=== PATIENT | male | born 1975 | race Caucasian/White ===

== ENCOUNTER 2017-01-04 01:15 | Inpatient (IN) | payer SELFPAY ==
[~2017-01-04] VITALS: Ht 177.8 cm; Wt 84.7 kg
[~2017-01-04 01:15] MED LIST: BACT800T5 PO; NALOXONE HCL 0.4 MG/ML AMP IV PUSH PRN; ONDANSETRON HCL 4 MG/2 ML VIAL IVP PRN; SODIUM CHLOR 0.9% 1000 ML INJ 1,000 ML IV SCH; Vancomycin Consult Pharmacy 1 EA OTHER SCH
--- NOTE | 2017-01-04 01:48 | HHI.HP ---
[facility] Primary [facility] Physician No Primary Care Physician Admission Diagnosis Diagnoses: Chief Complaint: left calf open wound Travel History International Travel<30 Days: No Contact w/Intl Traveler <30 Da: No History of Present Illness Written by REJI Summers acting as scribe for Dr. Argueta] on 01/04/17 at 01:40. 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 ago. Patient was seen and discharge at [place] [facility] with Bactrim and given a clindamycin injection. He declined admission at that time, he then went home and returned to the ED for admission. He denies any chest pain , sob, fever or chills. Past Family Social History Past Medical History Patient denies any medical history Past Surgical History chest tube placement Reported Medications Reported Meds & Active Scripts Active Bactrim DS (Sulfamethoxazole-Trimethoprim) 800-160 Mg Tab 1 Tab PO BID 10 Days Allergies: Coded Allergies: penicillin G (Verified Allergy, Severe, 01/03/17) Active Ordered Medications Current Medications Medications (Trade) Dose Ordered Sig/Jacklyn Route Start Time Stop Time Status Last Admin Sodium Chloride 1,000 ml @ 83 mls/hr Q12H3M IV 01/04/17 00:15 UNV (NS Flush) 2 ml UNSCH PRN IV FLUSH 01/04/17 00:15 UNV (NS Flush) 2 ml BID IV FLUSH 01/04/17 09:00 UNV (Zofran Inj) 4 mg Q6H PRN IVP 01/04/17 00:15 UNV (Lovenox Inj) 40 mg Q24H SQ 01/04/17 00:15 UNV ([place] 5-325 Mg) 1 tab Q4H PRN PO 01/04/17 00:15 UNV ([place] 10-325 Mg) 1 tab Q4H PRN PO 01/04/17 00:15 UNV (Narcan Inj) 0.4 mg UNSCH PRN IV PUSH 10/13/17 00:15 UNV Vancomycin HCl 1000 mg/Sodium Chloride 250 ml @ 250 mls/hr Q12H IV 01/04/17 02:00 UNV Pharmacy Profile Note 0 ml @ 0 mls/hr UNSCH OTHER 01/04/17 00:15 UNV Family History Patient denies any family history, no heart disease or cancer. Social History Tobacco use: Denies Alcohol use: Denies Illicit drug use: history of opiate use Physical Exam Physical Exam GENERAL: This is a well-nourished, well-developed patient, in no apparent distress. SKIN: Multiple scabbed lesions on right lower leg, open necrotic lesion to left lower leg with brown purulent drainage with surrounding erythema HEAD: Atraumatic. Normocephalic. EYES: Pupils equal round and reactive. Extraocular motions intact. ENT: Nose without bleeding, purulent drainage or septal hematoma. Airway patent. NECK: Trachea midline. No JVD CARDIOVASCULAR: Regular rate and rhythm without murmurs, gallops, or rubs. RESPIRATORY: Clear to auscultation. Breath sounds equal bilaterally. No wheezes , rales, or rhonchi. GASTROINTESTINAL: Abdomen soft, non-tender, nondistended. No guarding. MUSCULOSKELETAL: No calf tenderness. Left lower extremity edema surrounding open wound. NEUROLOGICAL: Awake and alert Motor and sensory grossly within normal limits. Normal speech. Caprini VTE Risk Assessment Caprini VTE Risk Assessment: Mod/High Risk (score >= 2) Caprini Risk Assessment Model Point Value = 1 Point Value = 2 Point Value = 3 Point Value = 5 Age 41-60 Minor surgery BMI > 25 kg/m2 Swollen legs Varicose veins or History of unexplained or recurrent spontaneous Oral contraceptives or hormone replacement Sepsis (< 1 month) Serious lung disease, including pneumonia (< 1 month) Abnormal pulmonary function Acute myocardial infarction Congestive heart failure (< 1 month) History of inflammatory bowel disease Medical patient at bed rest Age 61-74 Arthroscopic surgery Major open surgery (> 45 min) Laparoscopic surgery (> 45 min) Malignancy Confined to bed (> 72 hours) Immobilizing plaster cast Central venous access Age >= 75 History of VTE Family history of VTE Factor V Leiden Prothrombin [id number] Lupus anticoagulant Anticardiolipin antibodies Elevated serum homocysteine Heparin-induced thrombocytopenia Other congenital or acquired thrombophilia Stroke (< 1 month) Elective arthroplasty Hip, pelvis, or leg fracture Acute spinal cord injury (< 1 month) Prophylaxis Regimen Total Risk Factor Score Risk Level Prophylaxis Regimen 0-1 Low Early ambulation 2 Moderate Order ONE of the following: *Sequential Compression Device (SCD) *Heparin 5000 units SQ BID 3-4 Higher Order ONE of the following medications: *Heparin 5000 units SQ TID *Enoxaparin/Lovenox 40 mg SQ daily (WT < 150 kg, CrCl > 30 mL/min) *Enoxaparin/Lovenox 30 mg SQ daily (WT < 150 kg, CrCl > 10-29 mL/min) *Enoxaparin/Lovenox 30 mg SQ BID (WT < 150 kg, CrCl > 30 mL/min) AND/OR *Sequential Compression Device (SCD) 5 or more Highest Order ONE of the following medications: *Heparin 5000 units SQ TID (Preferred with Epidurals) *Enoxaparin/Lovenox 40 mg SQ daily (WT < 150 kg, CrCl > 30 mL/min) *Enoxaparin/Lovenox 30 mg SQ daily (WT < 150 kg, CrCl > 10-29 mL/min) *Enoxaparin/Lovenox 30 mg SQ BID (WT < 150 kg, CrCl > 30 mL/min) AND *Sequential Compression Device (SCD) Assessment and Plan Problem List: (1) Cellulitis ICD Code: L03.90 - Cellulitis, unspecified Status: Acute (2) Sporotrichosis ICD Code: B42.9 - Sporotrichosis, unspecified Status: Acute Assessment and Plan 41 y/o male with no medical history presented to the ED with multiple scabbed lesions to right lower leg, and open wound on his left leg from a [employer] plant that began 5 days. ago. Cellulitis, left calf -Consult podiatry for possible I&D -Consult infectious disease for assistance -IV antibiotics: Vancomycin -MRI ordered r/o abscess -Wound culture pending -Pain management with [place] PO -NPO Multiple lesions on right leg, suspect sporotrichosis -Itraconazole ordered daily DVT prophylaxis: Lovenox This note was transcribed by konstantin [Kristen Avilez]. I, Dr. Trevor Etienne personally performed the history, physical exam, and medical decision making; and confirmed the accuracy of the information in the transcribed note. Authenticated by Dr. Trevor Etienne on 01/04/17 at 02:20. Discussed Condition With Patient and RN Problem Qualifiers (1) Cellulitis: Qualified Codes: L03.116 - Cellulitis of left lower limb Kristen Avilez Jan 04, 2017 01:48 Trevor Etienne MD Jan 04, 2017 02:20
[2017-01-04 01:55] VITALS: BP 135/71; PULSE 76; RESP 19; TEMP 97.7; O2SAT 100
[2017-01-04] MEDS ORDERED: ITRACONAZOLE 100 MG CAP PO ONE (02:00)
[2017-01-04] MEDS: ENOXAPARIN SODIUM 40 MG/0.4 ML SYRINGE SQ SCH (02:00)
[2017-01-04] MEDS ORDERED: VANCOMYCIN INJ 1,000 MG in SODIUM CHLOR 0.9% 250 ML INJ 250 ML IV ONE ×2 (02:00→11:00)
[2017-01-04 03:17] VITALS: BP 126/63; PULSE 77; RESP 19; TEMP 98.5; O2SAT 100
[2017-01-04 08:14] VITALS: BP 126/79; PULSE 73; RESP 20; TEMP 98.2; O2SAT 18
[2017-01-04] MEDS ORDERED: ITRACONAZOLE 100 MG CAP PO SCH (09:00)
[2017-01-04] MEDS: SODIUM CHLORIDE 0.9% FLUSH 10 ML FLUSH IV FLUSH SCH ×2 (09:59→21:00)
[2017-01-04] MEDS: SODIUM CHLOR 0.9% 1000 ML INJ 1,000 ML IV SCH ×2 (10:00→21:03)
[2017-01-04] MEDS: ACETAMINOPHEN/HYDROcodone 325 MG/10 MG TAB PO PRN ×4 (10:01→22:45)
[2017-01-04 10:28] LABS: BASOPHIL % 0.4 % (0.0-2.0); EOSINOPHIL # 0.2 TH/MM3 (0-0.4); EOSINOPHIL % 2.1 % (0.0-4.0); HEMATOCRIT 37.3 % (39.0-51.0); HEMO FLAGS DIFF FINAL; LYMPH % 20.5 % (9.0-44.0); LYMPHOCYTE # 2.4 TH/MM3 (1.0-4.8); MEAN CELL VOLUME 84.3 FL (80.0-100.0); MEAN CORPUSCULAR HEMOGLOBIN 27.4 PG (27.0-34.0); MEAN CORPUSCULAR HGB CONC 32.5 % (32.0-36.0); MONO % 9.4 % (0.0-8.0); NEUT % 67.6 % (16.0-70.0); PLATELET COUNT 457 TH/MM3 (150-450); RED BLOOD COUNT 4.42 MIL/MM3 (4.50-5.90); RED CELL DISTRIBUTION WIDTH 13.5 % (11.6-17.2); WHITE BLOOD COUNT 11.9 TH/MM3 (4.0-11.0)
[2017-01-04 10:37] LABS: APTT (PATIENT) 27.3 SEC (24.3-30.1); PROTHROMBIN TIME - PATIENT 10.7 SEC (9.8-11.6)
[2017-01-04 11:08] LABS: ALT (GPT) 37 U/L (12-78); ANION GAP 7 MEQ/L (5-15); AST (GOT) 22 U/L (15-37); BLOOD UREA NITROGEN 10 MG/DL (7-18); CHLORIDE 103 MEQ/L (98-107); GLOMERULAR FILTRATION RATE 98 ML/MIN (>89); SODIUM (NA) 137 MEQ/L (136-145)
[2017-01-04 11:11] LABS: ALKALINE PHOSPHATASE 59 U/L (45-117); TOTAL BILIRUBIN ADULT 0.5 MG/DL (0.2-1.0)
[2017-01-04 12:18] VITALS: BP 128/60; PULSE 62; TEMP 98; O2SAT 97
--- NOTE | 2017-01-04 14:23 | HHI.PR ---
Subjective Remarks Follow-up for lower extremity lesions/infections. The patient complains of pain in his legs in these areas. His left leg has an ulceration that he thinks is a bit more dry today, but still swollen, red, and warm. He denies any fevers or chills. Pain in this area is currently 7/10 in severity. He feels like this pain is moving from his calf of his thigh, but no redness there. He also has some lesions on the right lower leg. Objective Vitals Vital Signs Date Time Temp Pulse Resp B/P (MAP) Pulse Ox O2 Delivery O2 Flow Rate FiO2 01/04/17 12:18 98.0 62 128/60 (82) 97 01/04/17 08:14 98.2 73 20 126/79 (95) 18 01/04/17 03:17 98.5 77 19 126/63 (84) 100 01/04/17 01:55 97.7 76 19 135/71 (92) 100 Result Diagram: 01/04/17 0957 01/04/17 0957 Objective Remarks GENERAL: Well-developed well-nourished. In no acute distress. SKIN: Warm and dry. Right ortega with multiple scabbed plaques. Left lower extremity infection as below. HEENT: Normocephalic. Pupils equal and round. Mucous membranes pink and moist. CARDIOVASCULAR: Regular rate and rhythm. No murmur appreciated. RESPIRATORY: No accessory muscle use. Clear to auscultation. Breath sounds equal bilaterally. GASTROINTESTINAL: Abdomen soft, non-tender, nondistended. Bowel sounds x4. MUSCULOSKELETAL: Left medial calf with central ulceration with serosanguineous drainage, and surrounding erythema, warmth, edema; somewhat difficult to assess due to multiple tattoos. NEUROLOGICAL: Awake and alert. No focal neurological deficits. Moves upper and lower extremities spontaneously. Normal speech. PSYCHIATRIC: Appropriate mood and affect; insight and judgment normal. 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 ago. Left calf ulceration with surrounding cellulitis: WBC 11.9. Afebrile. -Podiatry and ID consulted, appreciate specialists input -MRI ordered ordered to evaluate for underlying abscess -Wound cultures pending -Continue on IV vancomycin for now -Pain management with [place] PO Multiple lesions on right leg: Possible sporotrichosis -Given Itraconazole -ID consulted DVT prophylaxis: Lovenox Problem Qualifiers (1) Cellulitis: Qualified Codes: L03.116 - Cellulitis of left lower limb Abhay Hardin Jan 04, 2017 14:22
[2017-01-04] MEDS ORDERED: GADODIAMIDE PF 287 MG/ML 20 ML VIAL (for RAD MRI) IVCONTRAST ONE (16:03)
--- NOTE | 2017-01-04 16:13 | RADRPT ---
EXAM DATE/TIME: 01/04/2017 15:21 [place] COMPARISON: No previous studies available for comparison. INDICATIONS : Abscess. CONTRAST: 16 cc Omniscan (gadodiamide) IV MEDICAL HISTORY : IVDA SURGICAL HISTORY : None. ENCOUNTER: Initial ACUITY: 1 day PAIN SCORE: 4/10 LOCATION: Left leg TECHNIQUE: Multiplanar multisequence MRI examination of the lower leg was performed with and without contrast. FINDINGS: There is ulceration involving the medial confined to the subcutaneous tissues without defined abscess or fluid collection. This does not extend through the fascia into the muscle. There is no containe d fluid collection evident. There is no evidence for osteomyelitis. CONCLUSION: Ulcerated inflammatory process process confined to the subcutaneous tissues. Skyler Jose MD FACR on January 04, 2017 at 16:10 Board Certified Radiologist. This report was verified electronically.
[2017-01-04 16:21] VITALS: BP 122/60; PULSE 68; RESP 20; TEMP 98; O2SAT 96
[2017-01-04] MEDS: VANCOMYCIN INJ 1,250 MG in SODIUM CHLOR 0.9% 250 ML INJ 250 ML IV SCH (16:27)
--- NOTE | 2017-01-04 16:28 | PD.CONS ---
History of Present Illness Service Infectious disease Consult Requested By Dr Correia Reason for Consult Evaluate patient with multiple wounds BLE and RUE as a result of cuts from [employer] Primary Care Physician No Primary Care Physician Diagnoses: History of Present Illness Patient seen and examined. Records reviewed. Patient is a 41-year-old male, presented to the hospital for further evaluation of multiple lesions in his lower extremity, worse on the left leg. He sustained some wounds from working on the [employer] plan about 5 days prior to admission. 3 days ago he started noticing some of the wounds getting drainage. He has a large one on the left leg, and one day prior to admission it started draining, so he went [facility] ER, and he received some antibiotics , and he was advised admission. Patient however declined, and he came back here at [facility] today and admitted. He denies any fever chills or sweats. He has not had any respiratory complaint, GI or any urinary complaints. Patient has been taking showers, and has been keeping the wounds clean and putting some topical antibiotics. He is afebrile. WBC is mildly elevated at 11,000. Infectious disease consultation has been requested to evaluate the patient. Review of Systems Constitutional: DENIES: Fever, Chills, Night Sweats Eyes: DENIES: Eye pain Ears, nose, mouth, throat: DENIES: Nasal discharge, Oral lesions, Throat pain, Running Nose, Sinus Pain Respiratory: DENIES: Cough, Shortness of breath Cardiovascular: DENIES: Chest pain, Palpitations Gastrointestinal: DENIES: Abdominal pain, Diarrhea, Nausea, Vomiting, Difficulty Swallowing Genitourinary: DENIES: Urinary frequency, Urgency Musculoskeletal: DENIES: Joint pain, Joint Swelling Integumentary: COMPLAINS OF: Rash Immunologic/allergic: DENIES: Urticaria Neurologic: DENIES: Headache Psychiatric: DENIES: Anxiety Past Family Social History Allergies: Coded Allergies: penicillin G (Verified Allergy, Severe, 01/03/17) Past Medical History unremarkable Past Surgical History Previous chest tube placement Reported Medications I attest that I obtained, updated or reviewed the home and current medications. Reported Meds & Active Scripts Active Bactrim DS (Sulfamethoxazole-Trimethoprim) 800-160 Mg Tab 1 Tab PO BID 10 Days Active Ordered Medications orco prn Sporanox Vancomycin Zofran prn Family History Unremarkable Social History Tobacco use: Denies Alcohol use: Denies Illicit drug use: history of opiate use Physical Exam Vital Signs Vital Signs Date Time Temp Pulse Resp B/P (MAP) Pulse Ox O2 Delivery O2 Flow Rate FiO2 01/04/17 12:18 98.0 62 128/60 (82) 97 01/04/17 08:14 98.2 73 20 126/79 (95) 18 01/04/17 03:17 98.5 77 19 126/63 (84) 100 01/04/17 01:55 97.7 76 19 135/71 (92) 100 Physical Exam GENERAL: Patient is a well-nourished, well-developed male, awake and alert, not in respiratory distress. SKIN: Warm and dry. Has scattered dry lesions with crusted scabs in both LE and in his RUE some has pustular areas, with very minimal periwound erythema. The lasrgest lesion is in his L calf, with black eschar and has surrounding induration, tenderness and with pustular areas at borders. EYES: Ila conjunctiva. No petechia or hemorrhage. Pupils equal, round and reactive to light. Extraocular movements full and intact. No scleral icterus. No injection or drainage. EARS, NOSE AND THROAT: Nose without bleeding or purulent nasal discharge. No sinus tenderness. Mucous membranes pink and moist. No oral lesions noted. No exudate. No oral thrush. NECK: Trachea midline. Supple and not tender, no meningeal signs CARDIOVASCULAR: Regular rate and rhythm. No murmurs, rubs or gallops heard RESPIRATORY: Clear to auscultation. Breath sounds equal bilaterally. No rales , wheezing or rhonchi ABDOMEN: Soft, non-tender, nondistended. Bowel sounds present and normoactive. No guarding. No rebound. No organomegaly. EXTREMITIES: No clubbing, cyanosis, or edema.No joint effusion, has good ROM. No calf tenderness. Well perfused and warm. NEUROLOGICAL: Awake and alert. Cranial nerves grossly intact. Motor grossly within normal limits. PSYCHIATRIC: Normal affect, calm and cooperative. LINE: No evidence of infection Laboratory Laboratory Tests Test 01/04/17 09:57 White Blood Count 11.9 Red Blood Count 4.42 Hemoglobin 12.1 Hematocrit 37.3 Mean Corpuscular Volume 84.3 Mean Corpuscular Hemoglobin 27.4 Mean Corpuscular Hemoglobin Concent 32.5 Red Cell Distribution Width 13.5 Platelet Count 457 Mean Platelet Volume 6.8 Neutrophils (%) (Auto) 67.6 Lymphocytes (%) (Auto) 20.5 Monocytes (%) (Auto) 9.4 Eosinophils (%) (Auto) 2.1 Basophils (%) (Auto) 0.4 Neutrophils # (Auto) 8.0 Lymphocytes # (Auto) 2.4 Monocytes # (Auto) 1.1 Eosinophils # (Auto) 0.2 Basophils # (Auto) 0.0 CBC Comment DIFF FINAL Differential Comment Prothrombin Time 10.7 Prothromb Time International Ratio 1.0 Activated Partial Thromboplast Time 27.3 Blood Urea Nitrogen 10 Creatinine 0.86 Random Glucose 104 Total Protein 7.1 Albumin 2.9 Calcium Level 8.9 Alkaline Phosphatase 59 Aspartate Amino Transf (AST/SGOT) 22 Alanine Aminotransferase (ALT/SGPT) 37 Total Bilirubin 0.5 Sodium Level 137 Potassium Level 4.0 Chloride Level 103 Carbon Dioxide Level 27.0 Anion Gap 7 Estimat Glomerular Filtration Rate 98 Lactic Acid Level 0.9 Date/Time Source Procedure Growth Status 01/04/17 10:10 Blood Peripheral Aerobic Blood Culture Pending Received 01/04/17 10:10 Blood Peripheral Anaerobic Blood Culture Pending Received 01/04/17 01:40 Wound Leg Fungal Smear - Final NO FUNGAL ELEMENTS SEEN. Resulted 01/04/17 01:40 Wound Leg Fungal Culture Pending Resulted Result Diagram: 01/04/17 0957 01/04/17 0957 Imaging MRI - no abscess, process localized in subcutaneous tissue Assessment and Plan Assessment and Plan IMPRESSION Multiple locally infected wounds , largest in L calf, no deep involvement, most lesions look like typical impetigo looking lesions, with crusting and purulence RECOMMENDATION Wound care Follow C/S Continue vanco for now Add levaquin Stop Sporanox Choose oral Abx for D/C based on C/S Should be ok to D/C this weekend once C/S available Thank you for this consultation Discussed Condition With Explained plan to the patient D/W Martha Neely MD Jan 04, 2017 16:28
[2017-01-04] MEDS: COLLAGENASE OINT 30 GM TUBE TOPICAL SCH (18:00)
--- NOTE | 2017-01-04 18:14 | MB ---
cc: RENZO MCCRACKENM DATE OF CONSULTATION 01/04/17 REASON FOR CONSULTATION Left calf eschar abscess below-knee infection. HISTORY OF PRESENT ILLNESS This is a 41-year-old male who over the last 1-2 weeks noticed increased pain, redness and drainage of multiple wounds, specifically the left lower extremity. Of note, the patient's mother is being seen in [place] for a necrotizing fasciitis and has had multiple surgeries in which orthopedics and myself are taking care of. The patient denies any obvious incident or injury except for being around [employer] possibly obtaining multiple puncture wounds. It started as a small scabbed lesion and has started to progress to a purulent draining eschar with possible proximal spread. It appears to be slow and not rapid. PAST MEDICAL HISTORY Denies. The patient admits to opioid use in the past. Denies tobacco, alcohol. ALLERGIES PENICILLIN MEDICATIONS Active outpatient 1. Bactrim DS Inpatient 1. Levaquin. 2. Vancomycin. Please see complete med list in chart. PHYSICAL EXAMINATION This is an alert and oriented male seen bedside exhibiting nonlabored respirations. He has crusting lesions of bilateral pretibial area, right worse than left. Of focus, the left leg there appears to be a semi-fluctuant painful, reddened, indurated eschar of the medial calf measuring approximately 6 cm x 5 cm with and island lesion just proximal to it that appears to be under 1 cm. Upon pressure to the area, there is purulent drainage seen. There is no soft tissue emphysema or crepitus. There is mild tenderness that stops just below the knee. Upon examining the patient's proximal thigh, there appears to be no signs of further cellulitis, ischemia or proximal spread of infection. Bilateral pedal pulses are fully palpable. The leg is warm. The patient is capable of range of motion, dorsiflexion, plantar flexion, inversion and eversion. There appears to be full sensation of the extremities. The patient is noted to have calf tattoo incidental finding. LABORATORY FINDINGS White blood cell 11.9, hemoglobin/hematocrit 12/37, platelet count is 457. Chem-7 - sodium is 137, potassium 4.0, chloride 103, CO2 27.0, BUN is 10, creatinine 0.87, AST is 22, ALT 37. Coagulation profile - PT 10.7, INR one. Microbial findings - It appears to be preliminary. The gram stain is showing gram-positive cocci in pairs. Of note, the patient's mother, Irma Sanchez, is growing a group strep. This may be incidental, however, infectious disease and the medicine team were notified of the correlation of rapidly progressing soft tissue infection of the mother and it may help guide the treatment of son. ASSESSMENT/PLAN Left medial calf abscess with necrosis of tissue, possible early proximal spread. Due to the patient's clinical presentation of possible slow proximal spread, it is my recommendation that we move forward with excision of eschar and incision and drainage with deep tissue culture. This will take place within the a.m. The patient will continue antibiotics. Infectious disease and medicine notified. I will see the patient. He is n.p.o. after midnight. The patient may need long-term wound care including wound VAC and, if there is proximal spread beyond the knee, of course I will make the appropriate consultation for orthopedics at that time but right now it appears the infection is isolated to the medial calf. QUINN Mina/ /5:29 PM /6:00 PM
[2017-01-04] MEDS: LEVOFLOXACIN 750 MG TAB PO SCH (18:31)
[2017-01-04 20:18] VITALS: BP 150/79; PULSE 72; RESP 18; TEMP 98.8; O2SAT 100
[2017-01-05 00:24] VITALS: BP 121/68; PULSE 58; RESP 17; TEMP 98.5; O2SAT 97
[2017-01-05] MEDS: VANCOMYCIN INJ 1,250 MG in SODIUM CHLOR 0.9% 250 ML INJ 250 ML IV SCH ×2 (02:10→15:22)
[2017-01-05] MEDS: ACETAMINOPHEN/HYDROcodone 325 MG/10 MG TAB PO PRN ×4 (02:15→22:10)
[2017-01-05 04:24] VITALS: BP 136/86; PULSE 67; RESP 16; TEMP 97.9; O2SAT 100
[2017-01-05] MEDS ORDERED: BUPIVACAINE HCL PF 0.25% 30 ML VIAL ONE (07:12)
--- NOTE | 2017-01-05 07:42 | HHI.PR ---
Subjective Remarks Follow-up for lower extremity lesion/infections. The patient is going to work at this time for I&D and debridement of his left calf wound with podiatry. The patient has no acute complaints or concerns at this time. Continues to have some pain in his left leg wound. He denies any fevers or chills. All questions answered. Objective Vitals Vital Signs Date Time Temp Pulse Resp B/P (MAP) Pulse Ox O2 Delivery O2 Flow Rate FiO2 01/05/17 04:24 97.9 67 16 136/86 (103) 100 01/05/17 03:15 18 01/05/17 00:24 98.5 58 17 121/68 (85) 97 01/04/17 20:18 98.8 72 18 150/79 (102) 100 01/04/17 16:21 98.0 68 20 122/60 (80) 96 01/04/17 12:18 98.0 62 128/60 (82) 97 01/04/17 08:14 98.2 73 20 126/79 (95) 18 I/O 01/04/17 01/04/17 01/04/17 01/05/17 01/05/17 01/05/17 07:00 15:00 23:00 07:00 15:00 23:00 Intake Total 250 ml Balance 250 ml Intake IV Total 250 ml Result Diagram: 01/04/17 0957 01/04/17 0957 Imaging Last Impressions Lower Extremity MRI 01/04/17 0000 Signed Impressions: Service Date/Time: Wednesday, January 04, 2017 15:21 - CONCLUSION: Ulcerated inflammatory process process confined to the subcutaneous tissues. Skyler Jose MD FACR Objective Remarks GENERAL: Well-developed well-nourished. In no acute distress. SKIN: Warm and dry. Right ortega with multiple scabbed plaques. Left lower extremity infection as below. HEENT: Normocephalic. Pupils equal and round. Mucous membranes pink and moist. CARDIOVASCULAR: Regular rate and rhythm. No murmur appreciated. RESPIRATORY: No accessory muscle use. Clear to auscultation. Breath sounds equal bilaterally. GASTROINTESTINAL: Abdomen soft, non-tender, nondistended. Bowel sounds x4. MUSCULOSKELETAL: Left medial calf with central ulceration with serosanguineous drainage, and surrounding erythema, warmth, edema; somewhat difficult to assess due to multiple tattoos. NEUROLOGICAL: Awake and alert. No focal neurological deficits. Moves upper and lower extremities spontaneously. Normal speech. PSYCHIATRIC: Appropriate mood and affect; insight and judgment normal. A/P Problem List: (1) Cellulitis ICD Code: L03.90 - Cellulitis, unspecified Status: Acute Assessment and Plan 41 y/o male with no medical history presented to the ED with multiple scabbed lesions to right lower leg, and open wound on his left leg from a [employer] plant that began 5 days. ago. Left calf ulceration with surrounding cellulitis: Reviewed: WBC 11.9. Afebrile. MRI shows ulcerated inflammatory process combined to the subcutaneous tissue. -Podiatry consult and plan on operative intervention. -ID consulted, continue on vancomycin and Levaquin for now and follow up wound cultures -Wound cultures pending -Pain management with [place] PO and morphine IV Multiple lesions on right leg: More consistent with impetigo per ID. -Continue on antibiotics as above per ID DVT prophylaxis: Lovenox Problem Qualifiers (1) Cellulitis: Qualified Codes: L03.116 - Cellulitis of left lower limb Abhay Hardin Jan 05, 2017 07:42
--- NOTE | 2017-01-05 08:59 | HHI.PR ---
Immediate Post Op Note Procedure Date: Jan 05, 2017 Pre Op Diagnosis: (1) Abscess of leg without foot, left Post Op Diagnosis: same Surgeon: Clarence Watson Harmonica Maker(s): scrub Procedure: Incision drainage debridement calf with subfascial exploration, application of the wound vac, left Findings: infection appears not to go below facia Complications: none Specimen(s) removed: tissue for micro and tissue swb for micro Estimated blood loss: less than 75mL Anesthesia: General Drains: Other IVF Tourniquet time (min at mmHg) none Patient to: Other Patient Condition: Good Implant/Devices: SEE IMPLANT LOG (if applicable) Date/Time of Procedure: SEE SURGICAL CARE RECORD Clarence Watson DPM Jan 05, 2017 08:59
[2017-01-05] MEDS: LEVOFLOXACIN 750 MG TAB PO SCH (09:00)
[2017-01-05] MEDS: SODIUM CHLORIDE 0.9% FLUSH 10 ML FLUSH IV FLUSH SCH ×2 (09:00→21:00)
[2017-01-05] MEDS ORDERED: DO NOT ADM ANY ANTICOAGULANT DRUGS PRN ×2 (09:00→09:05)
[2017-01-05] MEDS: COLLAGENASE OINT 30 GM TUBE TOPICAL SCH (09:00)
[2017-01-05] MEDS ORDERED: PNEUMOCOCCAL POLYVALENT INJ 25 MCG/0.5 ML SYR IM ONE (09:00)
[2017-01-05] MEDS: SODIUM CHLOR 0.9% 1000 ML INJ 1,000 ML IV SCH ×2 (09:06→21:09)
[2017-01-05] MEDS ORDERED: *morphine SULFATE 8 MG/ML PERIprocedure ONLY ONE ×2 (09:09→09:21)
[2017-01-05] MEDS ORDERED: *MEPERIDINE 25 MG INJ VIAL PERIprocedural Use ONLY ONE (09:10)
[2017-01-05] MEDS ORDERED: *HYDROmorphone PF 1 MG VIAL PERIprocedural Use ONLY ONE (09:29)
[2017-01-05 10:53] VITALS: BP 134/66; PULSE 60; RESP 18; TEMP 98.6; O2SAT 98
[2017-01-05 12:00] VITALS: BP 134/66; PULSE 60; RESP 18; TEMP 98.6; O2SAT 98
[2017-01-05] MEDS ORDERED: PROPOFOL 200 MG/20 ML AMP IV ONE (12:00)
[2017-01-05] MEDS ORDERED: VECURONIUM BROMIDE 20 MG VIAL IV ONE (12:00)
[2017-01-05] MEDS ORDERED: MIDAZOLAM HCL 2 MG/2 ML VIAL IV ONE (12:00)
[2017-01-05] MEDS ORDERED: LIDOCAINE HCL 1% PF 5 ML AMPULE OTHER ONE (12:00)
[2017-01-05] MEDS ORDERED: ONDANSETRON HCL 4 MG/2 ML VIAL IV PUSH ONE (12:00)
[2017-01-05] MEDS: MORPHINE SULFATE 2 MG/ML INJ IV PUSH PRN ×3 (12:14→21:24)
--- NOTE | 2017-01-05 15:44 | MP ---
cc: RENZO MCCRACKEN M DATE OF SURGERY: 01/05/17 PREOPERATIVE DIAGNOSIS Left leg ulcer abscess, severe leg infection. POSTOPERATIVE DIAGNOSIS Left leg ulcer abscess, severe leg infection. PROCEDURES PERFORMED Incision and drainage, debridement of calf with subfascial exploration with application of wound VAC. FINDINGS Infection appears to not go below the fascia. COMPLICATIONS None. SPECIMEN Tissue and tissue swab for micro. ESTIMATED BLOOD LOSS Less than 75 mL. ANESTHESIA General. TOURNIQUET None. JUSTIFICATION FOR PROCEDURE This is a 41-year-old male who is noted to have multiple lesions of his extremity however the left medial calf appears to be a slowly spreading infected eschar with a central purulent drainage. Of note, the patient's mother is in [place] with necrotizing fasciitis group A strep. We devised a plan to move forward with wide excision and exploration of the patient's calf to prevent further proximal spread. No guarantees were given or implied regarding the outcome. The patient understood he may need long-term IV antibiotics and multiple returns to the operating room to remove the infection. The patient will likely have significant scarring and possible chronic pain in this area. PROCEDURE IN DETAIL Under mild sedation, the patient was brought in the operating room and placed on the operating table in a supine position. Following the induction of general anesthesia, the patient's left lower extremity was scrubbed, prepped and draped in the usual aseptic fashion. The foot was elevated and examined. There was noted to be induration and redness in the central purulent eschar of the proximal medial calf. There is no obvious soft tissue emphysema. Ischemic borders only extended approximately 4 cm from the central lesion. Utilizing curette and rongeur, the central necrotic tissue was taken down from epidermis to dermis down to the fascial layer. The indurated area was explored. There is an incision made proximal approximately 5 cm and distal 5 cm allowing for blunt dissection down to the fascial plane. There appeared to be no obvious fat necrosis. There was no obvious odor. There was no obvious gas bubbles. All nonviable tissue was sharply excised. Care was taken not to violate the greater saphenous vein. The wound was then flushed with 3 liters of pulse lavage normal saline perpendicular to the wound. Next, a wound VAC was then placed with adequate seal and suction to 125 mmHg. Two specimens were taken. A swab and tissue sent for micro. The patient tolerated the procedure well. We will continue to monitor the patient's clinical progress. The patient may need repeat incision, drainage and debridement with application of wound VAC pending his clinical progress in the next [id number] days. QUINN Mina/NANCY /8:56 AM /3:25 PM
[2017-01-05 16:00] VITALS: BP 121/58; PULSE 62; RESP 17; TEMP 97.9; O2SAT 97
[2017-01-05 18:03] LABS: AUTOMATED NEUTROPHIL # 7.4 TH/MM3 (1.8-7.7); BASOPHIL # 0.1 TH/MM3 (0-0.2); BASOPHIL % 0.7 % (0.0-2.0); EOSINOPHIL # 0.4 TH/MM3 (0-0.4); EOSINOPHIL % 2.9 % (0.0-4.0); HEMATOCRIT 36.4 % (39.0-51.0); HEMO FLAGS DIFF FINAL; LYMPH % 24.2 % (9.0-44.0); LYMPHOCYTE # 2.9 TH/MM3 (1.0-4.8); MEAN CELL VOLUME 84.8 FL (80.0-100.0); MEAN CORPUSCULAR HEMOGLOBIN 27.9 PG (27.0-34.0); MEAN CORPUSCULAR HGB CONC 32.9 % (32.0-36.0); MONO % 10.7 % (0.0-8.0); NEUT % 61.5 % (16.0-70.0); PLATELET COUNT 436 TH/MM3 (150-450); RED CELL DISTRIBUTION WIDTH 13.4 % (11.6-17.2); WHITE BLOOD COUNT 12.1 TH/MM3 (4.0-11.0)
[2017-01-05 18:30] LABS: ANION GAP 6 MEQ/L (5-15); AST (GOT) 23 U/L (15-37); BICARBONATE 27.2 MEQ/L (21.0-32.0); BLOOD UREA NITROGEN 12 MG/DL (7-18); CHLORIDE 104 MEQ/L (98-107); GLOMERULAR FILTRATION RATE 82 ML/MIN (>89); POTASSIUM 4.2 MEQ/L (3.5-5.1); SODIUM (NA) 137 MEQ/L (136-145)
[2017-01-05 18:34] LABS: ALKALINE PHOSPHATASE 59 U/L (45-117); ALT (GPT) 36 U/L (12-78); TOTAL BILIRUBIN ADULT 0.2 MG/DL (0.2-1.0)
[2017-01-05 21:17] VITALS: BP 143/81; PULSE 73; RESP 20; TEMP 98.4; O2SAT 99
[2017-01-06] MEDS: MORPHINE SULFATE 2 MG/ML INJ IV PUSH PRN ×6 (00:20→20:50)
[2017-01-06 01:01] VITALS: BP 143/84; PULSE 69; RESP 20; TEMP 98.1; O2SAT 97
[2017-01-06] MEDS ORDERED: PHARMACY ORDERED LAB ONE (02:45)
[2017-01-06] MEDS: ACETAMINOPHEN/HYDROcodone 325 MG/10 MG TAB PO PRN ×5 (02:50→23:05)
[2017-01-06] MEDS: VANCOMYCIN INJ 1,250 MG in SODIUM CHLOR 0.9% 250 ML INJ 250 ML IV SCH ×2 (03:00→15:26)
[2017-01-06 05:53] VITALS: BP 122/67; PULSE 56; RESP 18; TEMP 98; O2SAT 96
[2017-01-06 08:00] VITALS: BP 131/70; PULSE 56; RESP 18; TEMP 97.8; O2SAT 98
[2017-01-06] MEDS: COLLAGENASE OINT 30 GM TUBE TOPICAL SCH (09:00)
[2017-01-06] MEDS: LEVOFLOXACIN 750 MG TAB PO SCH (09:10)
[2017-01-06] MEDS: SODIUM CHLORIDE 0.9% FLUSH 10 ML FLUSH IV FLUSH SCH ×2 (09:11→20:42)
[2017-01-06] MEDS: SODIUM CHLOR 0.9% 1000 ML INJ 1,000 ML IV SCH ×2 (09:12→20:40)
[2017-01-06] MEDS ORDERED: INFLUENZA VIRUS VACCINE (QUADRIVALENT) 0.5 ML SYR IM ONE (10:00)
[2017-01-06 12:00] VITALS: BP 126/68; PULSE 62; RESP 17; TEMP 98.1; O2SAT 98
--- NOTE | 2017-01-06 12:51 | PD.POD ---
Subjective Pain score: 4 Remarks pain appears to be controlled. Past Med/Surg/Social History Social History Smoking Status: Never Smoker Objective Vital Signs Vital Signs Date Time Temp Pulse Resp B/P (MAP) Pulse Ox O2 Delivery O2 Flow Rate FiO2 01/06/17 12:00 98.1 62 17 126/68 (87) 98 01/06/17 10:45 18 01/06/17 10:45 18 01/06/17 08:00 97.8 56 18 131/70 (90) 98 01/06/17 05:53 98.0 56 18 122/67 (85) 96 01/06/17 01:01 98.1 69 20 143/84 (103) 97 01/05/17 21:17 98.4 73 20 143/81 (101) 99 01/05/17 18:17 Nasal Cannula 2.00 01/05/17 16:00 97.9 62 17 121/58 (79) 97 Coded Allergies: penicillin G (Verified Allergy, Severe, 01/03/17) Medications and IVs Administered Medications Medications (Trade) Dose Ordered Sig/Jacklyn Route PRN Reason Start Time Stop Time Status Last Admin Dose Admin Sodium Chloride (NS Flush) 2 ml BID IV FLUSH 01/04/17 09:00 01/06/17 09:11 Enoxaparin Sodium (Lovenox Inj) 40 mg Q24H SQ 01/04/17 02:00 Future Hold 01/04/17 02:00 Acetaminophen/ Hydrocodone Bitart (Jackson 10-325 Mg) 1 tab Q4H PRN PO PAIN SCALE 6 TO 10 01/04/17 00:15 01/06/17 09:11 Sodium Chloride 1,000 ml @ 83 mls/hr Q12H3M IV 01/04/17 09:00 01/05/17 21:09 Vancomycin HCl 1250 mg/Sodium Chloride 262.5 ml @ 250 mls/hr Q12H IV 01/04/17 15:00 01/06/17 03:00 Levofloxacin (Levaquin) 750 mg DAILY PO 01/04/17 18:00 01/06/17 09:10 Morphine Sulfate (Morphine Inj) 2 mg Q3H PRN IV PUSH BREAKTHROUGH PAIN 01/05/17 07:45 01/06/17 10:40 Other Results Laboratory Tests Test 01/05/17 17:40 White Blood Count 12.1 TH/MM3 Red Blood Count 4.30 MIL/MM3 Hemoglobin 12.0 GM/DL Hematocrit 36.4 % Mean Corpuscular Volume 84.8 FL Mean Corpuscular Hemoglobin 27.9 PG Mean Corpuscular Hemoglobin Concent 32.9 % Red Cell Distribution Width 13.4 % Platelet Count 436 TH/MM3 Mean Platelet Volume 7.0 FL Neutrophils (%) (Auto) 61.5 % Lymphocytes (%) (Auto) 24.2 % Monocytes (%) (Auto) 10.7 % Eosinophils (%) (Auto) 2.9 % Basophils (%) (Auto) 0.7 % Neutrophils # (Auto) 7.4 TH/MM3 Lymphocytes # (Auto) 2.9 TH/MM3 Monocytes # (Auto) 1.3 TH/MM3 Eosinophils # (Auto) 0.4 TH/MM3 Basophils # (Auto) 0.1 TH/MM3 CBC Comment DIFF FINAL Differential Comment Laboratory Tests Test 01/05/17 17:40 Blood Urea Nitrogen 12 MG/DL Creatinine 1.01 MG/DL Random Glucose 112 MG/DL Total Protein 6.6 GM/DL Albumin 2.6 GM/DL Calcium Level 8.2 MG/DL Alkaline Phosphatase 59 U/L Aspartate Amino Transf (AST/SGOT) 23 U/L Alanine Aminotransferase (ALT/SGPT) 36 U/L Total Bilirubin 0.2 MG/DL Sodium Level 137 MEQ/L Potassium Level 4.2 MEQ/L Chloride Level 104 MEQ/L Carbon Dioxide Level 27.2 MEQ/L Anion Gap 6 MEQ/L Estimat Glomerular Filtration Rate 82 ML/MIN Microbiology Date/Time Source Procedure Growth Status 01/04/17 10:10 Blood Peripheral Aerobic Blood Culture - Preliminary NO GROWTH IN 2 DAYS Resulted 01/04/17 10:10 Blood Peripheral Anaerobic Blood Culture - Preliminary NO GROWTH IN 2 DAYS Resulted 01/04/17 09:57 Blood Peripheral Aerobic Blood Culture - Preliminary NO GROWTH IN 2 DAYS Resulted 01/04/17 09:57 Blood Peripheral Anaerobic Blood Culture - Preliminary NO GROWTH IN 2 DAYS Resulted 01/05/17 08:29 Abscess Leg Fungal Smear - Final NO FUNGAL ELEMENTS SEEN. Resulted 01/05/17 08:29 Abscess Leg Fungal Culture Pending Resulted 01/05/17 08:29 Abscess Leg Acid Fast Stain Pending Received 01/05/17 08:29 Abscess Leg Mycobacterial Culture Pending Received 01/05/17 08:29 Abscess Leg Gram Stain - Final Resulted 01/05/17 08:29 Abscess Leg Wound Culture Pending Resulted 01/05/17 08:29 Abscess Leg Fungal Smear - Final NO FUNGAL ELEMENTS SEEN. Resulted 01/05/17 08:29 Abscess Leg Fungal Culture Pending Resulted 01/05/17 08:29 Abscess Leg Acid Fast Stain Pending Received 01/05/17 08:29 Abscess Leg Mycobacterial Culture Pending Received 01/05/17 08:29 Abscess Leg Gram Stain - Final Resulted 01/05/17 08:29 Abscess Leg Wound Culture Pending Resulted 01/04/17 16:05 Wound Leg Gram Stain - Final Complete 01/04/17 16:05 Wound Culture - Final Staphylococcus Aureus S. Aureus Mrsa Group A Beta Strep Complete 01/04/17 01:40 Wound Leg Fungal Smear - Final NO FUNGAL ELEMENTS SEEN. Resulted 01/04/17 01:40 Wound Leg Fungal Culture Pending Resulted 01/04/17 01:40 Wound Leg Gram Stain - Final Complete 01/04/17 01:40 Wound Culture - Final Staphylococcus Aureus S. Aureus Mrsa Group A Beta Strep Complete RUN DATE: 01/06/17 [facility] LAB LIVE PAGE 1 RUN TIME: [address] [address] DOCTOR REPORT PATIENT Name: YAYARODNEY JOANIE Age/Sex:41/M Attend Dr: Rick Correia MD Unit#: [id number] Status: ADM IN Location: N05A 1507 -A Re01/04/17 : 1975 SPECIMEN #: [id number] JESSI: 01/04/170 STATUS: COMP RECD: 01/04/[address]: Kristen Avilez PT ID: Nicola BOX/PROVIDER ID: [id number] SOURCE: WOUND COPY TO: Trevor Etienne MD SPDESC: LEG NO PRIMARY CARE PHYSICIAN BILL CLIENT: ORDERED: WOUND CULTURE QUERIES: Method of Collection: SWAB ACT WKST: WOUNDS 01/05/17 #1 Procedure Result Verified Site GRAM STAIN Final 01/04/17-1017 MODERATE WBC'S MANY GRAM POSITIVE COCCI IN PAIRS WOUND CULTURE Final 01/06/17-0916 HEAVY GROWTH STAPHYLOCOCCUS AUREUS HEAVY GROWTH S. AUREUS MRSA This organism should be considered resistant to other Beta lactam agents, ie, penicillins, Beta-lactam/Beta-lactamase inhibitor combinations, carbapenems, and cephems (with the exception of cephalosporins with anti-MRSA activity). HEAVY GROWTH GROUP A BETA STREP (PRESUMPTIVE ID) If the patient has penicillin allergy, please contact the Micro Lab at [phone] for further susceptibility testing. NO ANAEROBES ISOLATED Results called with read-back confirmation to SOLOMON RAM by JORGE HOLBROOK at 0911 CONTINUED ON NEXT PAGE RUN DATE: 01/06/17 [facility] LAB LIVE PAGE 2 RUN TIME: [address] [address] DOCTOR REPORT PATIENT Patient: RODNEY JAVIER #[id number] (Continued) Specimen: [id number] Collected: 01/04/17 Received: 01/04/17 (Continued) Procedure Result Verified Site WOUND CULTURE Final (continued) 01/06/17 STA AUREUS STAPH MRSA M.I.C. RX M.I.C. RX --------- --- --------- --- PENICILLIN G >8 Haydee >8 R OXACILLIN 0.5 S >2 R CEFAZOLIN <4 S <4 R CEFTRIAXONE <4 S <4 R GENTAMICIN <1 S <1 S ERYTHROMYCIN <0.25 S >4 R CLINDAMYCIN 0.5 S <0.25 S DAPTOMYCIN 1 S 0.5 S VANCOMYCIN 2 S 1 S TETRACYCLINE <1 S <1 S CHLORAMPHENICOL <8 S <8 S TRIMETH/SULFA <0.5/9.5 S <0.5/9.5 S LEVOFLOXACIN <0.5 S 2 S LINEZOLID 4 S 2 S RIFAMPIN <1 S <1 S WOUND CULTURE Preliminary (changed) 01/05/17-1605 HEAVY GROWTH STAPHYLOCOCCUS AUREUS - SUSCEPTIBILITY TO FOLLOW Physical Exam General appearance: comfortable Nutritional status: normal Details Left medial calf wound vac intact, minimal redness, no proximal redness, good ROM of the foot and ankle and calf. Assessment & Plan Diagnosis: (1) Abscess of leg without foot, left ICD Codes: L02.416 - Cutaneous abscess of left lower limb (2) Cellulitis ICD Codes: L03.90 - Cellulitis, unspecified Status: Acute A/P Improving, MRSA put pt on contact/isolation. Plan for repeat incision drainage debridement wound vac in 2-3 days. Problem Qualifiers (1) Cellulitis: Qualified Codes: L03.116 - Cellulitis of left lower limb Clarence Hoffmann DPM Jan 06, 2017 12:51
[2017-01-06 16:00] VITALS: BP 151/72; PULSE 67; RESP 19; TEMP 98.7; O2SAT 98
[2017-01-06 21:08] VITALS: BP 142/89; PULSE 74; RESP 20; TEMP 98.3; O2SAT 97
--- NOTE | 2017-01-06 22:22 | HHI.PR ---
Subjective Remarks Patient seen this morning around 11 AM. reports pain in left calf continues. Denies any chest pain or shortness of breath. Objective Vital Signs Date Time Temp Pulse Resp B/P (MAP) Pulse Ox O2 Delivery O2 Flow Rate FiO2 01/06/17 21:08 98.3 74 20 142/89 (106) 97 01/06/17 18:22 18 01/06/17 16:00 98.7 67 19 151/72 (98) 98 01/06/17 15:26 18 01/06/17 12:00 98.1 62 17 126/68 (87) 98 01/06/17 08:00 97.8 56 18 131/70 (90) 98 01/06/17 05:53 98.0 56 18 122/67 (85) 96 01/06/17 01:01 98.1 69 20 143/84 (103) 97 I/O 01/05/17 01/05/17 01/05/17 01/06/17 01/06/17 01/06/17 07:00 15:00 23:00 07:00 15:00 23:00 Intake Total 1200 ml 694 ml 1199 ml 1020 ml 512.5 ml Output Total 30 ml 300 ml Balance 1170 ml 694 ml 1199 ml 720 ml 512.5 ml Intake Oral 1020 ml IV Total 694 ml 1199 ml 512.5 ml Other 1200 ml Output Urine Total 300 ml Estimated Blood Loss 30 ml # Voids 4 4 # Bowel Movements 0 Result Diagram: 01/05/17 1740 01/05/171739 Objective Remarks GENERAL: patient lying in bed. Appears comfortable. SKIN: Warm and dry. HEAD: Normocephalic. EYES: No scleral icterus. No injection or drainage. NECK: Supple, trachea midline. No JVD or lymphadenopathy. CARDIOVASCULAR: Regular rate and rhythm without murmurs, gallops, or rubs. RESPIRATORY: Breath sounds equal bilaterally. No accessory muscle use. GASTROINTESTINAL: Abdomen soft, non-tender, nondistended. MUSCULOSKELETAL: No cyanosis, or edema. left leg with wound VAC in place. BACK: Nontender without obvious deformity. No CVA tenderness. A/P Assessment and Plan ===01/06/17 MRSA has returned on wound culture. Afebrile today. Vitals reviewed and stable. 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 ago. //Left calf ulceration with surrounding cellulitis: Reviewed: WBC 11.9. Afebrile. MRI shows ulcerated inflammatory process combined to the subcutaneous tissue. -Podiatry consult and plan on operative intervention. -ID consulted, continue on vancomycin and Levaquin for now and follow up wound cultures -Wound cultures pending -Pain management with [place] PO and morphine IV //Multiple lesions on right leg: More consistent with impetigo per ID. -Continue on antibiotics as above per ID //DVT prophylaxis: Lovenox Discharge Planning pending podiatry clearance Patient is self-pay. Rick Correia MD Jan 06, 2017 22:22
[2017-01-07 01:15] VITALS: BP 147/69; PULSE 66; RESP 20; TEMP 97.9; O2SAT 97
[2017-01-07] MEDS ORDERED: PHARMACY ORDERED LAB ONE (02:45)
[2017-01-07] MEDS: ACETAMINOPHEN/HYDROcodone 325 MG/10 MG TAB PO PRN ×5 (03:30→23:31)
[2017-01-07] MEDS: VANCOMYCIN INJ 1,250 MG in SODIUM CHLOR 0.9% 250 ML INJ 250 ML IV SCH ×2 (03:38→14:49)
[2017-01-07 05:44] VITALS: BP 114/62; PULSE 60; RESP 20; TEMP 98.2
[2017-01-07 08:00] VITALS: BP 142/84; PULSE 63; RESP 18; TEMP 97.6; O2SAT 99
[2017-01-07] MEDS: LEVOFLOXACIN 750 MG TAB PO SCH (08:34)
[2017-01-07] MEDS: SODIUM CHLORIDE 0.9% FLUSH 10 ML FLUSH IV FLUSH SCH ×2 (08:38→21:00)
[2017-01-07] MEDS: SODIUM CHLOR 0.9% 1000 ML INJ 1,000 ML IV SCH (08:39)
[2017-01-07] MEDS: COLLAGENASE OINT 30 GM TUBE TOPICAL SCH (08:39)
[2017-01-07] MEDS: MORPHINE SULFATE 2 MG/ML INJ IV PUSH PRN ×4 (09:56→21:54)
[2017-01-07 11:58] LABS: AUTOMATED NEUTROPHIL # 6.4 TH/MM3 (1.8-7.7); BASOPHIL # 0.2 TH/MM3 (0-0.2); BASOPHIL % 2.3 % (0.0-2.0); EOSINOPHIL # 0.3 TH/MM3 (0-0.4); EOSINOPHIL % 2.6 % (0.0-4.0); HEMATOCRIT 39.1 % (39.0-51.0); HEMO FLAGS AUTO DIFF; LYMPH % 22.9 % (9.0-44.0); LYMPHOCYTE # 2.3 TH/MM3 (1.0-4.8); MEAN CELL VOLUME 84.3 FL (80.0-100.0); MEAN CORPUSCULAR HEMOGLOBIN 27.9 PG (27.0-34.0); MEAN CORPUSCULAR HGB CONC 33.1 % (32.0-36.0); MONO % 9.3 % (0.0-8.0); NEUT % 62.9 % (16.0-70.0); PLATELET COUNT 453 TH/MM3 (150-450); RED BLOOD COUNT 4.64 MIL/MM3 (4.50-5.90); RED CELL DISTRIBUTION WIDTH 13.7 % (11.6-17.2); WHITE BLOOD COUNT 10.1 TH/MM3 (4.0-11.0)
[2017-01-07 12:00] VITALS: BP 133/78; PULSE 80; RESP 18; TEMP 97.5; O2SAT 95
[2017-01-07 12:25] LABS: BANDS 5 % (0-6); METAMYELOCYTES 1 % (0-1); POLYS (SEG NEUTROPHILS) 63 % (16-70); WBC DIFF SAMPLE 100
[2017-01-07 12:26] LABS: BICARBONATE 26.9 MEQ/L (21.0-32.0); MAGNESIUM 2.2 MG/DL (1.5-2.5); PLATELET ESTIMATE SMEAR HIGH (NORMAL); PLATELET MORPHOLOGY NORMAL (NORMAL); POTASSIUM 3.9 MEQ/L (3.5-5.1); SCAN/DIFF FINAL DIFF MANUAL
[2017-01-07 16:00] VITALS: BP 138/81; PULSE 67; RESP 18; TEMP 98.1; O2SAT 98
--- NOTE | 2017-01-07 16:07 | HHI.PR ---
Subjective Remarks Follow-up bilateral lower extremities infected wound/left calf abscess 01/07/17-patient seen and examined; complains of poorly controlled left lower extremity pain. Currently afebrile Objective Vitals Vital Signs Date Time Temp Pulse Resp B/P (MAP) Pulse Ox O2 Delivery O2 Flow Rate FiO2 01/07/17 12:00 97.5 80 18 133/78 (96) 95 01/07/17 08:00 97.6 63 18 142/84 (103) 99 01/07/17 05:44 98.2 60 20 114/62 (79) 01/07/17 01:15 97.9 66 20 147/69 (95) 97 01/06/17 21:08 98.3 74 20 142/89 (106) 97 01/06/17 18:22 18 I/O 01/06/17 01/06/17 01/06/17 01/07/17 01/07/17 01/07/17 07:00 15:00 23:00 07:00 15:00 23:00 Intake Total 1199 ml 1020 ml 512.5 ml Output Total 300 ml Balance 1199 ml 720 ml 512.5 ml Intake Oral 1020 ml IV Total 1199 ml 512.5 ml Output Urine Total 300 ml # Voids 4 # Bowel Movements 0 Result Diagram: 01/07/17 1128 01/07/17 1128 Imaging Last Impressions Lower Extremity MRI 01/04/17 0000 Signed Impressions: Service Date/Time: Wednesday, January 04, 2017 15:21 - CONCLUSION: Ulcerated inflammatory process process confined to the subcutaneous tissues. Skyler Jose MD FACR Objective Remarks GENERAL: NAD SKIN: Warm and dry. HEAD: Normocephalic. EYES: No scleral icterus. No injection or drainage. NECK: Supple, trachea midline. No JVD or lymphadenopathy. CARDIOVASCULAR: Regular rate and rhythm without murmurs, gallops, or rubs. RESPIRATORY: Breath sounds equal bilaterally. No accessory muscle use. GASTROINTESTINAL: Abdomen soft, non-tender, nondistended. MUSCULOSKELETAL: No cyanosis, or edema. Wound VAC in place left lower extremity BACK: Nontender without obvious deformity. No CVA tenderness. Procedures 01/05/17 Incision and drainage, debridement of calf with subfascial exploration with application of wound VAC A/P Problem List: (1) Cellulitis ICD Code: L03.90 - Cellulitis, unspecified Status: Acute (2) Abscess of leg without foot, left ICD Code: L02.416 - Cutaneous abscess of left lower limb Assessment and Plan 41-year-old man with Left calf ulceration with surrounding cellulitis Left lower extremity abscess Status post Incision and drainage, debridement of calf with subfascial exploration with application of wound VAC Management per podiatry Currently on IV vancomycin and by mouth Levaquin per infectious disease specialist pending final culture report Plan for I&D within next 48 hours Pain management accordingly Multiple lesions on right leg: More consistent with impetigo per ID. -Continue on antibiotics as above per ID DVT prophylaxis: Lovenox Problem Qualifiers (1) Cellulitis: Qualified Codes: L03.116 - Cellulitis of left lower limb Adonay Zuluaga MD Jan 07, 2017 16:07
[2017-01-07] MEDS ORDERED: SODIUM CHLORID 0.9% 500 ML IV PRN (19:15)
[2017-01-07] MEDS ORDERED: INSULIN HUMAN REGULAR 1,000 UNITS/10 ML VIAL SQ PRN (19:15)
[2017-01-07] MEDS ORDERED: METOPROLOL TARTRATE 25 MG TAB PO PRN (19:15)
[2017-01-07] MEDS ORDERED: LACTATED RINGER'S 1000 ML IV PRN (19:15)
[2017-01-07] MEDS ORDERED: POVIDONE IODINE 5% (ANTISEPSIS KIT) 4 APPLICATIONS EACH NARE PRN (19:15)
[2017-01-07] MEDS ORDERED: CHLORHEXIDINE GLUCONATE 2 % 1 PACK (2 CLOTHS) TOPICAL PRN (19:15)
[2017-01-07 20:00] VITALS: BP 146/71; PULSE 67; RESP 18; TEMP 98.1; O2SAT 98
[2017-01-08] VITALS: BP 135/67; PULSE 61; RESP 18; TEMP 98.3; O2SAT 96
[2017-01-08] MEDS: MORPHINE SULFATE 2 MG/ML INJ IV PUSH PRN ×4 (01:35→21:30)
[2017-01-08] MEDS: VANCOMYCIN INJ 1,250 MG in SODIUM CHLOR 0.9% 250 ML INJ 250 ML IV SCH (03:52)
[2017-01-08 04:00] VITALS: BP 122/58; PULSE 58; RESP 18; TEMP 97.4; O2SAT 94
[2017-01-08] MEDS: ACETAMINOPHEN/HYDROcodone 325 MG/10 MG TAB PO PRN ×5 (04:53→23:12)
[2017-01-08 08:00] VITALS: BP 138/73; PULSE 54; RESP 20; TEMP 97.6; O2SAT 100
[2017-01-08] MEDS: COLLAGENASE OINT 30 GM TUBE TOPICAL SCH (09:00)
[2017-01-08] MEDS: LEVOFLOXACIN 750 MG TAB PO SCH (09:40)
[2017-01-08] MEDS: SODIUM CHLORIDE 0.9% FLUSH 10 ML FLUSH IV FLUSH SCH ×2 (09:43→21:00)
--- NOTE | 2017-01-08 10:40 | HHI.IDPN ---
Subjective Subjective Remarks Patient is a 41-year-old male, presented to the hospital for further evaluation of multiple lesions in his lower extremity, worse on the left leg. He sustained some wounds from working on the [employer] plan about 5 days prior to admission. 3 days ago he started noticing some of the wounds getting drainage. He has a large one on the left leg, and one day prior to admission it started draining, so he went to the [facility] ER, and he received some antibiotics , and he was advised admission. Patient however declined, and he came back here at [facility] today and admitted. He denies any fever chills or sweats. He has not had any respiratory complaint, GI or any urinary complaints. Patient has been taking showers, and has been keeping the wounds clean and putting some topical antibiotics. He is afebrile. WBC is mildly elevated at 11,000. Infectious disease consultation has been requested to evaluate the patient. Notes reviewed No fever Had debridement 01/04, with wound vac placement, not deep C/S with MRSA, MSSA and GAS To go for another debridement today and wound vac placement No fever WBC down to normal Antibiotics Vancomycin Levaquin Lines PIV Past Medical History Reviewed Allergies: Coded Allergies: penicillin G (Verified Allergy, Severe, 01/03/17) Objective . Vital Signs Date Time Temp Pulse Resp B/P (MAP) Pulse Ox O2 Delivery O2 Flow Rate FiO2 01/08/17 08:00 97.6 54 20 138/73 (94) 100 01/08/17 04:00 97.4 58 18 122/58 (79) 94 01/08/17 00:00 98.3 61 18 135/67 (89) 96 01/07/17 20:00 98.1 67 18 146/71 (96) 98 01/07/17 16:00 98.1 67 18 138/81 (100) 98 01/07/17 12:00 97.5 80 18 133/78 (96) 95 . Laboratory Tests Test 01/07/17 11:28 White Blood Count 10.1 TH/MM3 Red Blood Count 4.64 MIL/MM3 Hemoglobin 12.9 GM/DL Hematocrit 39.1 % Mean Corpuscular Volume 84.3 FL Mean Corpuscular Hemoglobin 27.9 PG Mean Corpuscular Hemoglobin Concent 33.1 % Red Cell Distribution Width 13.7 % Platelet Count 453 TH/MM3 Mean Platelet Volume 7.0 FL Neutrophils (%) (Auto) 62.9 % Lymphocytes (%) (Auto) 22.9 % Monocytes (%) (Auto) 9.3 % Eosinophils (%) (Auto) 2.6 % Basophils (%) (Auto) 2.3 % Neutrophils # (Auto) 6.4 TH/MM3 Lymphocytes # (Auto) 2.3 TH/MM3 Monocytes # (Auto) 0.9 TH/MM3 Eosinophils # (Auto) 0.3 TH/MM3 Basophils # (Auto) 0.2 TH/MM3 CBC Comment AUTO DIFF Differential Total Cells Counted 100 Neutrophils % (Manual) 63 % Band Neutrophils % 5 % Lymphocytes % 23 % Monocytes % 8 % Neutrophils # (Manual) 7.0 TH/MM3 Metamyelocytes 1 % Differential Comment FINAL DIFF MANUAL Platelet Estimate HIGH Platelet Morphology Comment NORMAL Red Cell Morphology Comment NORMAL Hematology Comments Laboratory Tests Test 01/07/17 11:28 Blood Urea Nitrogen 12 MG/DL Creatinine 0.92 MG/DL Random Glucose 99 MG/DL Albumin 2.9 GM/DL Calcium Level 8.9 MG/DL Phosphorus Level 2.4 MG/DL Magnesium Level 2.2 MG/DL Sodium Level 139 MEQ/L Potassium Level 3.9 MEQ/L Chloride Level 104 MEQ/L Carbon Dioxide Level 26.9 MEQ/L Anion Gap 8 MEQ/L Estimat Glomerular Filtration Rate 91 ML/MIN Imaging Lower Extremity MRI 01/04/17 0000 Signed Impressions: Service Date/Time: Wednesday, January 04, 2017 15:21 - CONCLUSION: Ulcerated inflammatory process process confined to the subcutaneous tissues. Skyler Jose MD FACR Physical Exam GENERAL: awake and alert, not in respiratory distress. SKIN: Warm and dry. Has scattered dry lesions with crusted scabs in both LE and in his RUE, all drying up and healing, no further purulence seen. EYES: [place] conjunctiva. No petechia or hemorrhage. Pupils equal, round and reactive to light. Extraocular movements full and intact. No scleral icterus. No injection or drainage. EARS, NOSE AND THROAT: Nose without bleeding or purulent nasal discharge. No sinus tenderness. Mucous membranes pink and moist. No oral lesions noted. No exudate. No oral thrush. NECK: Trachea midline. Supple and not tender, no meningeal signs CARDIOVASCULAR: Regular rate and rhythm. No murmurs, rubs or gallops heard RESPIRATORY: Clear to auscultation. Breath sounds equal bilaterally. No rales , wheezing or rhonchi ABDOMEN: Soft, non-tender, nondistended. Bowel sounds present and normoactive. No guarding. No rebound. No organomegaly. EXTREMITIES: No clubbing, cyanosis, or edema.No joint effusion, has good ROM. No calf tenderness. Well perfused and warm. L calf - has the wound with vac in place, no erythema noted NEUROLOGICAL: Grossly non-focal. PSYCHIATRIC: Normal affect, calm and cooperative. LINE: No evidence of infection Assessment & Plan Remarks IMPRESSION Infected wound L leg, C/S MRSA, MSSA, GAS - S/P debridement RECOMMENDATION Patient is clinically stable from ID standpoint, no evidence of sepsis He can continue Abx as outpatient, and stable for D/C Give Clindamycin 300 QID x 10 days on D/C For now, continue IV vanco while in the hospital Stop Levaquin I will be available as needed Please call if with any new ID issue or question Martha Dominguez MD Jan 08, 2017 10:40
--- NOTE | 2017-01-08 10:52 | HHI.PR ---
Subjective Remarks Follow-up bilateral lower extremities infected wound/left calf abscess 01/07/17-patient seen and examined; complains of poorly controlled left lower extremity pain. Currently afebrile 01/08/17-patient seen and examined, currently nothing by mouth and plan for incision and drainage in the OR today by podiatry. Afebrile Objective Vitals Vital Signs Date Time Temp Pulse Resp B/P (MAP) Pulse Ox O2 Delivery O2 Flow Rate FiO2 01/08/17 08:00 97.6 54 20 138/73 (94) 100 01/08/17 04:00 97.4 58 18 122/58 (79) 94 01/08/17 00:00 98.3 61 18 135/67 (89) 96 01/07/17 20:00 98.1 67 18 146/71 (96) 98 01/07/17 16:00 98.1 67 18 138/81 (100) 98 01/07/17 12:00 97.5 80 18 133/78 (96) 95 I/O 01/07/17 01/07/17 01/07/17 01/08/17 01/08/17 01/08/17 06:59 14:59 22:59 06:59 14:59 22:59 Intake Total 262.5 ml Balance 262.5 ml IV Total 262.5 ml Result Diagram: 01/07/17 1128 01/07/17 1128 Objective Remarks GENERAL: NAD SKIN: Warm and dry. HEAD: Normocephalic. EYES: No scleral icterus. No injection or drainage. NECK: Supple, trachea midline. No JVD or lymphadenopathy. CARDIOVASCULAR: Regular rate and rhythm without murmurs, gallops, or rubs. RESPIRATORY: Breath sounds equal bilaterally. No accessory muscle use. GASTROINTESTINAL: Abdomen soft, non-tender, nondistended. MUSCULOSKELETAL: No cyanosis, or edema. Wound VAC in place left lower extremity BACK: Nontender without obvious deformity. No CVA tenderness. Procedures 01/05/17 Incision and drainage, debridement of calf with subfascial exploration with application of wound VAC A/P Problem List: (1) Cellulitis ICD Code: L03.90 - Cellulitis, unspecified Status: Acute (2) Abscess of leg without foot, left ICD Code: L02.416 - Cutaneous abscess of left lower limb Assessment and Plan 41-year-old man with Left calf ulceration with surrounding cellulitis Left lower extremity abscess Status post Incision and drainage, debridement of calf with subfascial exploration with application of wound VAC Management per podiatry Currently on IV vancomycin and by mouth Levaquin per infectious disease specialist pending final culture report Plan for I&D today 01/08/17 Pain management accordingly Multiple lesions on right leg: More consistent with impetigo per ID. -Continue on antibiotics as above per ID DVT prophylaxis: Hold Lovenox Problem Qualifiers (1) Cellulitis: Qualified Codes: L03.116 - Cellulitis of left lower limb Adonay Zuluaga MD Jan 08, 2017 10:52
[2017-01-08 12:00] VITALS: BP 162/90; PULSE 57; RESP 20; TEMP 97.3; O2SAT 99
[2017-01-08] MEDS ORDERED: MIDAZOLAM HCL 2 MG/2 ML VIAL IV ONE (12:00)
[2017-01-08] MEDS ORDERED: DEXAMETHASONE SOD PHOS 4 MG/ML VIAL IV ONE (12:00)
[2017-01-08] MEDS ORDERED: KETOROLAC TROMETHAMINE 30 MG/ML (IVP) VIAL IV PUSH ONE (12:00)
[2017-01-08] MEDS ORDERED: PROPOFOL 200 MG/20 ML AMP IV ONE (12:00)
[2017-01-08] MEDS ORDERED: LIDOCAINE HCL 1% PF 5 ML AMPULE OTHER ONE (12:00)
[2017-01-08] MEDS ORDERED: ONDANSETRON HCL 4 MG/2 ML VIAL IV PUSH ONE (12:00)
[2017-01-08] MEDS ORDERED: PHENYLEPH/NS 1000 MCG/10 ML SYR IV ONE (12:00)
[2017-01-08] MEDS ORDERED: BUPIVACAINE HCL PF 0.25% 30 ML VIAL ONE (13:59)
[2017-01-08] MEDS ORDERED: ACETAMINOPHEN 1000 MG/100 ML 0 ML IV ONE (14:13)
[2017-01-08] MEDS ORDERED: HYDROmorphone HCL PF 2 MG/ML VIAL ONE (14:44)
[2017-01-08] MEDS: VANCOMYCIN INJ 1,500 MG in SODIUM CHLORID 0.9% 500 ML INJ 500 ML IV SCH (15:32)
[2017-01-08] MEDS ORDERED: DO NOT ADM ANY ANTICOAGULANT DRUGS PRN (15:52)
[2017-01-08 16:00] VITALS: BP_SYST 132; BP_SYST 170; BP_DIAS 73; BP_DIAS 96; PULSE 111; PULSE 66; RESP 20; TEMP 97.3; TEMP 97.8; O2SAT 100; O2SAT 96
[2017-01-08] MEDS ORDERED: *HYDROmorphone PF 1 MG VIAL PERIprocedural Use ONLY ONE (16:10)
--- NOTE | 2017-01-08 16:18 | HHI.PR ---
Immediate Post Op Note Procedure Date: Jan 08, 2017 Pre Op Diagnosis: (1) Cellulitis (2) Abscess of leg without foot, left Post Op Diagnosis: same Surgeon: Clarence Watson [employer] Mgr(s): scrub Procedure: Left calf Incision drainage calf with wound vac application Findings: improving may be ready for skin graft 5-7 days. Complications: none Specimen(s) removed: deep tissue culture Estimated blood loss: less than 30mL Anesthesia: General Drains: Other Patient to: Other Patient Condition: Good Implant/Devices: SEE IMPLANT LOG (if applicable) Date/Time of Procedure: SEE SURGICAL CARE RECORD Clarence WatsonM Jan 08, 2017 16:18
[2017-01-08 20:00] VITALS: BP 138/68; PULSE 80; RESP 18; TEMP 97.4; O2SAT 97
[2017-01-08] MEDS: SODIUM CHLORIDE 0.9% FLUSH 10 ML FLUSH IV FLUSH PRN (21:30)
[2017-01-09] VITALS (7 sets, daily range): BP systolic 118–140; BP diastolic 61–77; PULSE 58–86; RESP 18–20; TEMP 97.7–98.3; O2SAT 95–99
[2017-01-09] MEDS: VANCOMYCIN INJ 1,500 MG in SODIUM CHLORID 0.9% 500 ML INJ 500 ML IV SCH ×2 (02:37→14:51)
[2017-01-09] MEDS: MORPHINE SULFATE 2 MG/ML INJ IV PUSH PRN ×5 (02:37→22:33)
[2017-01-09] MEDS: COLLAGENASE OINT 30 GM TUBE TOPICAL SCH (08:06)
[2017-01-09] MEDS: ACETAMINOPHEN/HYDROcodone 325 MG/10 MG TAB PO PRN (08:07)
[2017-01-09] MEDS: SODIUM CHLORIDE 0.9% FLUSH 10 ML FLUSH IV FLUSH SCH ×2 (08:07→21:00)
[2017-01-09] MEDS: LEVOFLOXACIN 750 MG TAB PO SCH (08:07)
--- NOTE | 2017-01-09 11:12 | HHI.PR ---
Subjective Remarks Follow-up bilateral lower extremities infected wound/left calf abscess 01/07/17-patient seen and examined; complains of poorly controlled left lower extremity pain. Currently afebrile 01/08/17-patient seen and examined, currently nothing by mouth and plan for incision and drainage in the OR today by podiatry. Afebrile 01/09/17-patient seen and examined ; he status post I&D of left calf abscess . Complains of inadequate pain control. Currently afebrile Objective Vitals Vital Signs Date Time Temp Pulse Resp B/P (MAP) Pulse Ox O2 Delivery O2 Flow Rate FiO2 01/09/17 08:38 97.7 75 20 126/76 (93) 99 01/09/17 04:00 98.1 58 18 118/61 (80) 96 01/09/17 00:00 97.9 86 18 124/61 (82) 95 01/08/17 21:41 14 01/08/17 21:30 14 01/08/17 20:00 97.4 80 18 138/68 (91) 97 01/08/17 16:15 98.3 74 14 140/72 (94) 99 Room Air 01/08/17 16:00 97.3 66 20 132/73 (92) 100 01/08/17 16:00 67 14 131/79 (96) 100 Room Air 01/08/17 15:53 98.3 71 14 117/70 (86) 100 Nasal Cannula 2 01/08/17 12:00 97.3 57 20 162/90 (114) 99 I/O 01/08/17 01/08/17 01/08/17 01/09/17 01/09/17 01/09/17 07:00 15:00 23:00 07:00 15:00 23:00 Intake Total 1015 ml Output Total 10 ml Balance 1005 ml IV Total 515 ml Other 500 ml Estimated Blood Loss 10 ml # Voids 3 3 Result Diagram: 01/07/17 1128 01/09/17 0914 Objective Remarks GENERAL: NAD SKIN: Warm and dry. HEAD: Normocephalic. EYES: No scleral icterus. No injection or drainage. NECK: Supple, trachea midline. No JVD or lymphadenopathy. CARDIOVASCULAR: Regular rate and rhythm without murmurs, gallops, or rubs. RESPIRATORY: Breath sounds equal bilaterally. No accessory muscle use. GASTROINTESTINAL: Abdomen soft, non-tender, nondistended. MUSCULOSKELETAL: No cyanosis, or edema. Wound VAC in place left lower extremity BACK: Nontender without obvious deformity. No CVA tenderness. Procedures 01/05/17 Incision and drainage, debridement of calf with subfascial exploration with application of wound VAC 01/08/17 Left calf Incision drainage calf with wound vac application A/P Problem List: (1) Cellulitis ICD Code: L03.90 - Cellulitis, unspecified Status: Acute (2) Abscess of leg without foot, left ICD Code: L02.416 - Cutaneous abscess of left lower limb Assessment and Plan 41-year-old man with Left calf ulceration with surrounding cellulitis Left lower extremity abscess Status post Incision and drainage, debridement of calf with subfascial exploration with application of wound VAC 01/08/17 Left calf Incision drainage calf with wound vac application per podiatry Patient will likely need skin graft in 5-7 days Management per podiatry Currently on IV vancomycin and by mouth Levaquin per infectious disease specialist pending final culture report Pain management accordingly Multiple lesions on right leg: More consistent with impetigo per ID. -Continue on antibiotics as above per ID DVT prophylaxis: Lovenox Problem Qualifiers (1) Cellulitis: Qualified Codes: L03.116 - Cellulitis of left lower limb Adonay Zuluaga MD Jan 09, 2017 11:12
[2017-01-09] MEDS: ACETAMINOPHEN/HYDROcodone 325 MG/5 MG TAB PO PRN (12:17)
--- NOTE | 2017-01-09 13:14 | MP ---
cc: RENZO MCCRACKEN DPM DATE OF SURGERY: 01/09/2017 PREOPERATIVE DIAGNOSIS Cellulitis, abscess, post-surgical ulcer of left medial proximal calf. POSTOPERATIVE DIAGNOSIS Cellulitis, abscess, post-surgical ulcer of left medial proximal calf. PROCEDURE PERFORMED Left calf incision and drainage with wound VAC application and partial closure of wound. FINDINGS Improving, possibly read for skin graft in the next 5-7 days. SPECIMEN Deep culture taken. ESTIMATED BLOOD LOSS Less than 30 mL. ANESTHESIA General. TOURNIQUET TIME None. COMPLICATIONS None. JUSTIFICATION FOR PROCEDURE This is a pleasant 41-year-old male who had a worsening necrotic eschar with clinical signs of abscess that went down to the fascial plane. He is returned to the operating room after the initial incision, drainage and debridement. The patient appears to be responding. PROCEDURE IN DETAIL Under mild sedation the patient is brought into the operating room and placed on the operating table in the supine position. Following the induction of general anesthesia the left lower extremity was scrubbed, prepped and draped in the usual aseptic fashion. The foot, ankle and calf was observed. The wound VAC showed that there was increased granulation tissue. There is mild necrosis at the periphery of the wound down to the level of the gastroc soleus fascial plane. It did not appear to violate any deep compartment or go sub-myofascial plane. The wound was curetted. Pulse lavage was used. Sharp excisional debridement of the wound periphery took place with partial closure of the most proximal and medial border utilizing nylon. A wound VAC was then applied under adequate seal and suction at 125 mmHg. The patient recovered in the PACU area. The plan is to observe the wound, possible wound VAC change in the next 3-5 days. If there is rapid increase in granulation tissue he may be a candidate for skin graft application, however, wound culture needs to be negative. QUINN Mina/SUSIE /8:33 AM /1:09 PM
[2017-01-09] MEDS: oxyCODONE/ACETAMINOPHEN 10 MG/325 MG TAB PO PRN ×2 (16:37→21:00)
[2017-01-10 00:31] VITALS: BP 122/69; PULSE 69; RESP 18; TEMP 97.9; O2SAT 96
[2017-01-10] MEDS: oxyCODONE/ACETAMINOPHEN 10 MG/325 MG TAB PO PRN ×5 (01:17→21:52)
[2017-01-10] MEDS ORDERED: PHARMACY ORDERED LAB ONE (02:45)
[2017-01-10] MEDS: VANCOMYCIN INJ 1,500 MG in SODIUM CHLORID 0.9% 500 ML INJ 500 ML IV SCH ×2 (03:59→14:30)
[2017-01-10] MEDS: MORPHINE SULFATE 2 MG/ML INJ IV PUSH PRN ×6 (03:59→23:29)
[2017-01-10 05:30] VITALS: BP 123/66; PULSE 58; RESP 18; TEMP 98.2; O2SAT 96
[2017-01-10 08:00] VITALS: BP 150/90; PULSE 55; RESP 20; TEMP 98.3; O2SAT 99
[2017-01-10] MEDS: LEVOFLOXACIN 750 MG TAB PO SCH (08:29)
[2017-01-10] MEDS: SODIUM CHLORIDE 0.9% FLUSH 10 ML FLUSH IV FLUSH SCH ×2 (08:30→20:24)
[2017-01-10] MEDS: COLLAGENASE OINT 30 GM TUBE TOPICAL SCH (08:30)
--- NOTE | 2017-01-10 11:34 | HHI.PR ---
Subjective Remarks Follow-up bilateral lower extremities infected wound/left calf abscess 01/07/17-patient seen and examined; complains of poorly controlled left lower extremity pain. Currently afebrile 01/08/17-patient seen and examined, currently nothing by mouth and plan for incision and drainage in the OR today by podiatry. Afebrile 01/09/17-patient seen and examined ; he status post I&D of left calf abscess . Complains of inadequate pain control. Currently afebrile 01/10/17-patient seen and examined; afebrile, no complaint. Objective Vitals Vital Signs Date Time Temp Pulse Resp B/P (MAP) Pulse Ox O2 Delivery O2 Flow Rate FiO2 01/10/17 08:00 98.3 55 20 150/90 (110) 99 01/10/17 05:30 98.2 58 18 123/66 (85) 96 01/10/17 00:31 97.9 69 18 122/69 (86) 96 01/09/17 20:30 98.1 80 18 140/77 (98) 96 01/09/17 16:34 98.3 60 19 130/71 (90) 98 01/09/17 12:50 99 01/09/17 12:48 98.0 70 20 139/72 (94) 99 I/O 01/09/17 01/09/17 01/09/17 01/10/17 01/10/17 01/10/17 07:00 15:00 23:00 07:00 15:00 23:00 Intake Total 960 ml Balance 960 ml Intake Oral 960 ml # Voids 6 2 # Bowel Movements 1 Result Diagram: 01/07/17 1128 01/09/17 0914 Objective Remarks GENERAL: NAD SKIN: Warm and dry. HEAD: Normocephalic. EYES: No scleral icterus. No injection or drainage. NECK: Supple, trachea midline. No JVD or lymphadenopathy. CARDIOVASCULAR: Regular rate and rhythm without murmurs, gallops, or rubs. RESPIRATORY: Breath sounds equal bilaterally. No accessory muscle use. GASTROINTESTINAL: Abdomen soft, non-tender, nondistended. MUSCULOSKELETAL: No cyanosis, or edema. Wound VAC in place left lower extremity BACK: Nontender without obvious deformity. No CVA tenderness. Procedures 01/05/17 Incision and drainage, debridement of calf with subfascial exploration with application of wound VAC 01/08/17 Left calf Incision drainage calf with wound vac application A/P Problem List: (1) Cellulitis ICD Code: L03.90 - Cellulitis, unspecified Status: Acute (2) Abscess of leg without foot, left ICD Code: L02.416 - Cutaneous abscess of left lower limb Assessment and Plan 41-year-old man with Left calf ulceration with surrounding cellulitis Left lower extremity abscess Status post Incision and drainage, debridement of calf with subfascial exploration with application of wound VAC 01/08/17 Left calf Incision drainage calf with wound vac application per podiatry Patient will likely need skin graft in 5-7 days per podiatry Wound VAC Management per podiatry Currently on IV vancomycin and by mouth Levaquin per infectious disease specialist pending final culture report Pain management accordingly Multiple lesions on right leg: More consistent with impetigo per ID. -Continue on antibiotics as above per ID DVT prophylaxis: Lovenox Problem Qualifiers (1) Cellulitis: Qualified Codes: L03.116 - Cellulitis of left lower limb Adonay Zuluaga MD Jan 10, 2017 11:34
[2017-01-10 12:00] VITALS: BP 125/67; PULSE 60; RESP 20; TEMP 97.4; O2SAT 98
[2017-01-10 16:25] VITALS: BP 124/76; PULSE 61; RESP 20; TEMP 97.9; O2SAT 98
[2017-01-10 20:49] VITALS: BP 136/64; PULSE 69; RESP 18; TEMP 98.4; O2SAT 98
[2017-01-10] MEDS: SODIUM CHLORIDE 0.9% FLUSH 10 ML FLUSH IV FLUSH PRN (23:29)
[2017-01-11 00:52] VITALS: BP 151/82; PULSE 72; RESP 18; TEMP 98.3; O2SAT 97
[2017-01-11] MEDS: ENOXAPARIN SODIUM 40 MG/0.4 ML SYRINGE SQ SCH (02:03)
[2017-01-11] MEDS: VANCOMYCIN INJ 1,500 MG in SODIUM CHLORID 0.9% 500 ML INJ 500 ML IV SCH ×2 (02:04→14:44)
[2017-01-11] MEDS: SODIUM CHLORIDE 0.9% FLUSH 10 ML FLUSH IV FLUSH PRN ×2 (02:16→04:59)
[2017-01-11] MEDS: MORPHINE SULFATE 2 MG/ML INJ IV PUSH PRN ×6 (02:16→20:09)
[2017-01-11 05:45] VITALS: BP 125/66; PULSE 67; RESP 18; TEMP 97.5; O2SAT 96
[2017-01-11] MEDS: COLLAGENASE OINT 30 GM TUBE TOPICAL SCH (08:20)
[2017-01-11] MEDS: LEVOFLOXACIN 750 MG TAB PO SCH (08:25)
[2017-01-11] MEDS: oxyCODONE/ACETAMINOPHEN 10 MG/325 MG TAB PO PRN ×4 (08:25→21:37)
[2017-01-11] MEDS: SODIUM CHLORIDE 0.9% FLUSH 10 ML FLUSH IV FLUSH SCH ×2 (08:25→20:09)
[2017-01-11 08:58] VITALS: BP 138/75; PULSE 69; RESP 18; TEMP 97.4; O2SAT 98
--- NOTE | 2017-01-11 12:24 | HHI.PR ---
Subjective Remarks Follow-up bilateral lower extremities infected wound/left calf abscess 01/07/17-patient seen and examined; complains of poorly controlled left lower extremity pain. Currently afebrile 01/08/17-patient seen and examined, currently nothing by mouth and plan for incision and drainage in the OR today by podiatry. Afebrile 01/09/17-patient seen and examined ; he status post I&D of left calf abscess . Complains of inadequate pain control. Currently afebrile 01/10/17-patient seen and examined; afebrile, no complaint. 01/11/17-patient seen and examined, denies any significant pain to left lower extremity. Afebrile and no acute event overnight. Objective Vitals Vital Signs Date Time Temp Pulse Resp B/P (MAP) Pulse Ox O2 Delivery O2 Flow Rate FiO2 01/11/17 08:58 97.4 69 18 138/75 (96) 98 01/11/17 05:45 97.5 67 18 125/66 (85) 96 01/11/17 00:52 98.3 72 18 151/82 (105) 97 01/10/17 20:49 98.4 69 18 136/64 (88) 98 01/10/17 16:25 97.9 61 20 124/76 (92) 98 I/O 01/10/17 01/10/17 01/10/17 01/11/17 01/11/17 01/11/17 07:00 15:00 23:00 07:00 15:00 23:00 Intake Total 600 ml 600 ml Balance 600 ml 600 ml Intake Oral 600 ml 600 ml # Voids 2 3 # Bowel Movements 1 Result Diagram: 01/07/17 1128 01/09/17 0914 Objective Remarks GENERAL: NAD SKIN: Warm and dry. HEAD: Normocephalic. EYES: No scleral icterus. No injection or drainage. NECK: Supple, trachea midline. No JVD or lymphadenopathy. CARDIOVASCULAR: Regular rate and rhythm without murmurs, gallops, or rubs. RESPIRATORY: Breath sounds equal bilaterally. No accessory muscle use. GASTROINTESTINAL: Abdomen soft, non-tender, nondistended. MUSCULOSKELETAL: No cyanosis, or edema. Wound VAC in place left lower extremity BACK: Nontender without obvious deformity. No CVA tenderness. Procedures 01/05/17 Incision and drainage, debridement of calf with subfascial exploration with application of wound VAC 01/08/17 Left calf Incision drainage calf with wound vac application A/P Problem List: (1) Cellulitis ICD Code: L03.90 - Cellulitis, unspecified Status: Acute (2) Abscess of leg without foot, left ICD Code: L02.416 - Cutaneous abscess of left lower limb Assessment and Plan 41-year-old man with Left calf ulceration with surrounding cellulitis Left lower extremity abscess Status post Incision and drainage, debridement of calf with subfascial exploration with application of wound VAC 01/08/17 Left calf Incision drainage calf with wound vac application per podiatry Patient will likely need skin graft in 3-4 days now Wound VAC Management per podiatry. Likely wound VAC to be discontinued within the next few days Currently on IV vancomycin and by mouth Levaquin per infectious disease specialist pending final culture report Pain management accordingly Multiple lesions on right leg: More consistent with impetigo per ID. -Continue on antibiotics as above per ID DVT prophylaxis: Lovenox Problem Qualifiers (1) Cellulitis: Qualified Codes: L03.116 - Cellulitis of left lower limb Adonay Zuluaga MD Jan 11, 2017 12:24
[2017-01-11 12:48] VITALS: BP 134/70; PULSE 79; RESP 16; TEMP 97.6; O2SAT 99
[2017-01-11 17:03] VITALS: BP 129/66; PULSE 66; RESP 20; TEMP 97.8; O2SAT 98
[2017-01-11 20:00] VITALS: BP 109/61; PULSE 66; RESP 20; TEMP 97.8; O2SAT 99
[2017-01-11] MEDS ORDERED: HYDROmorphone HCL 2 MG TAB PO ONE (23:45)
[2017-01-12] VITALS: BP 113/65; PULSE 62; RESP 20; TEMP 97.6; O2SAT 97
[2017-01-12] MEDS: ENOXAPARIN SODIUM 40 MG/0.4 ML SYRINGE SQ SCH (01:12)
[2017-01-12] MEDS: VANCOMYCIN INJ 1,500 MG in SODIUM CHLORID 0.9% 500 ML INJ 500 ML IV SCH ×2 (02:27→15:06)
[2017-01-12 04:32] VITALS: BP 124/68; PULSE 64; RESP 20; TEMP 97.9; O2SAT 98
[2017-01-12] MEDS: oxyCODONE/ACETAMINOPHEN 10 MG/325 MG TAB PO PRN ×5 (05:23→23:32)
[2017-01-12 08:00] VITALS: BP 147/94; PULSE 67; RESP 18; TEMP 97.6; O2SAT 97
[2017-01-12] MEDS: LEVOFLOXACIN 750 MG TAB PO SCH (08:38)
[2017-01-12] MEDS: MORPHINE SULFATE 2 MG/ML INJ IV PUSH PRN ×4 (08:55→20:26)
[2017-01-12] MEDS: COLLAGENASE OINT 30 GM TUBE TOPICAL SCH (09:00)
[2017-01-12] MEDS: SODIUM CHLORIDE 0.9% FLUSH 10 ML FLUSH IV FLUSH SCH ×2 (09:00→20:27)
[2017-01-12 12:00] VITALS: BP 131/78; PULSE 86; RESP 18; TEMP 97.6; O2SAT 97
--- NOTE | 2017-01-12 13:30 | HHI.PR ---
Subjective Remarks Follow-up bilateral lower extremities infected wound/left calf abscess 01/07/17-patient seen and examined; complains of poorly controlled left lower extremity pain. Currently afebrile 01/08/17-patient seen and examined, currently nothing by mouth and plan for incision and drainage in the OR today by podiatry. Afebrile 01/09/17-patient seen and examined ; he status post I&D of left calf abscess . Complains of inadequate pain control. Currently afebrile 01/10/17-patient seen and examined; afebrile, no complaint. 01/11/17-patient seen and examined, denies any significant pain to left lower extremity. Afebrile and no acute event overnight. 01/12/17-patient seen and examined; would like to be discharged if possible. Afebrile Objective Vitals Vital Signs Date Time Temp Pulse Resp B/P (MAP) Pulse Ox O2 Delivery O2 Flow Rate FiO2 01/12/17 12:00 97.6 86 18 131/78 (95) 97 01/12/17 08:00 97.6 67 18 147/94 (111) 97 01/12/17 04:32 97.9 64 20 124/68 (86) 98 01/12/17 00:00 97.6 62 20 113/65 (81) 97 01/11/17 20:00 97.8 66 20 109/61 (77) 99 01/11/17 17:03 97.8 66 20 129/66 (87) 98 I/O 01/11/17 01/11/17 01/11/17 01/12/17 01/12/17 01/12/17 07:00 15:00 23:00 07:00 15:00 23:00 Intake Total 1200 ml Balance 1200 ml Intake Oral 1200 ml # Voids 4 2 # Bowel Movements 0 0 Result Diagram: 01/11/171809 Objective Remarks GENERAL: NAD SKIN: Warm and dry. HEAD: Normocephalic. EYES: No scleral icterus. No injection or drainage. NECK: Supple, trachea midline. No JVD or lymphadenopathy. CARDIOVASCULAR: Regular rate and rhythm without murmurs, gallops, or rubs. RESPIRATORY: Breath sounds equal bilaterally. No accessory muscle use. GASTROINTESTINAL: Abdomen soft, non-tender, nondistended. MUSCULOSKELETAL: No cyanosis, or edema. Wound VAC in place left lower extremity BACK: Nontender without obvious deformity. No CVA tenderness. Procedures 01/05/17 Incision and drainage, debridement of calf with subfascial exploration with application of wound VAC 01/08/17 Left calf Incision drainage calf with wound vac application A/P Problem List: (1) Cellulitis ICD Code: L03.90 - Cellulitis, unspecified Status: Acute (2) Abscess of leg without foot, left ICD Code: L02.416 - Cutaneous abscess of left lower limb Assessment and Plan 41-year-old man with Left calf ulceration with surrounding cellulitis Left lower extremity abscess Status post Incision and drainage, debridement of calf with subfascial exploration with application of wound VAC 01/08/17 Left calf Incision drainage calf with wound vac application per podiatry Patient will likely need skin graft in 3 days now Wound VAC Management per podiatry. Likely wound VAC to be discontinued within the next few days Currently on IV vancomycin and by mouth and s/p Levaquin per infectious disease specialist Pain management accordingly Multiple lesions on right leg: More consistent with impetigo per ID. -Continue on antibiotics as above per ID DVT prophylaxis: Lovenox Problem Qualifiers (1) Cellulitis: Qualified Codes: L03.116 - Cellulitis of left lower limb Adonay Zuluaga MD Jan 12, 2017 13:30
[2017-01-12 16:00] VITALS: BP 157/87; PULSE 74; RESP 20; TEMP 97.8; O2SAT 98
[2017-01-12] MEDS ORDERED: ALPRAZolam 1 MG TAB PO ONE (17:45)
[2017-01-12 20:00] VITALS: BP 138/90; PULSE 81; RESP 20; TEMP 98.1; O2SAT 98
[2017-01-13] VITALS: BP 125/75; PULSE 79; RESP 20; TEMP 98.5; O2SAT 99
[2017-01-13] MEDS: MORPHINE SULFATE 2 MG/ML INJ IV PUSH PRN ×5 (01:21→23:03)
[2017-01-13] MEDS: ENOXAPARIN SODIUM 40 MG/0.4 ML SYRINGE SQ SCH (01:22)
[2017-01-13] MEDS: VANCOMYCIN INJ 1,500 MG in SODIUM CHLORID 0.9% 500 ML INJ 500 ML IV SCH ×2 (01:22→15:11)
[2017-01-13 04:00] VITALS: BP 130/68; PULSE 51; RESP 20; TEMP 97.1
[2017-01-13] MEDS: oxyCODONE/ACETAMINOPHEN 10 MG/325 MG TAB PO PRN ×4 (07:11→21:16)
[2017-01-13 07:51] VITALS: BP 108/57; PULSE 52; RESP 18; TEMP 98.3; O2SAT 98
[2017-01-13] MEDS: SODIUM CHLORIDE 0.9% FLUSH 10 ML FLUSH IV FLUSH SCH ×2 (09:00→21:00)
[2017-01-13] MEDS: COLLAGENASE OINT 30 GM TUBE TOPICAL SCH (09:00)
--- NOTE | 2017-01-13 10:47 | HHI.PR ---
Subjective Remarks Follow-up bilateral lower extremities infected wound/left calf abscess 01/07/17-patient seen and examined; complains of poorly controlled left lower extremity pain. Currently afebrile 01/08/17-patient seen and examined, currently nothing by mouth and plan for incision and drainage in the OR today by podiatry. Afebrile 01/09/17-patient seen and examined ; he status post I&D of left calf abscess . Complains of inadequate pain control. Currently afebrile 01/10/17-patient seen and examined; afebrile, no complaint. 01/11/17-patient seen and examined, denies any significant pain to left lower extremity. Afebrile and no acute event overnight. 01/12/17-patient seen and examined; would like to be discharged if possible. Afebrile 01/13/17-patient seen and examined, stable and afebrile. States he had a good night sleep. Denies any left lower extremity pain. Was seen yesterday by podiatry. Objective Vitals Vital Signs Date Time Temp Pulse Resp B/P (MAP) Pulse Ox O2 Delivery O2 Flow Rate FiO2 01/13/17 07:51 98.3 52 18 108/57 (74) 98 01/13/17 04:00 97.1 51 20 130/68 (88) 01/13/17 00:00 98.5 79 20 125/75 (92) 99 01/12/17 20:00 98.1 81 20 138/90 (106) 98 01/12/17 16:00 97.8 74 20 157/87 (110) 98 01/12/17 12:30 16 01/12/17 12:00 97.6 86 18 131/78 (95) 97 I/O 01/12/17 01/12/17 01/12/17 01/13/17 01/13/17 01/13/17 07:00 15:00 23:00 07:00 15:00 23:00 Intake Total 240 ml Balance 240 ml Intake Oral 240 ml # Voids 2 1 # Bowel Movements 0 Result Diagram: 01/11/171809 Objective Remarks GENERAL: NAD SKIN: Warm and dry. HEAD: Normocephalic. EYES: No scleral icterus. No injection or drainage. NECK: Supple, trachea midline. No JVD or lymphadenopathy. CARDIOVASCULAR: Regular rate and rhythm without murmurs, gallops, or rubs. RESPIRATORY: Breath sounds equal bilaterally. No accessory muscle use. GASTROINTESTINAL: Abdomen soft, non-tender, nondistended. MUSCULOSKELETAL: No cyanosis, or edema. Wound VAC in place left lower extremity BACK: Nontender without obvious deformity. No CVA tenderness. Procedures 01/05/17 Incision and drainage, debridement of calf with subfascial exploration with application of wound VAC 01/08/17 Left calf Incision drainage calf with wound vac application A/P Problem List: (1) Cellulitis ICD Code: L03.90 - Cellulitis, unspecified Status: Acute (2) Abscess of leg without foot, left ICD Code: L02.416 - Cutaneous abscess of left lower limb Assessment and Plan 41-year-old man with Left calf ulceration with surrounding cellulitis Left lower extremity abscess Status post Incision and drainage, debridement of calf with subfascial exploration with application of wound VAC 01/08/17 Left calf Incision drainage calf with wound vac application per podiatry Likely skin graft tomorrow 01/14/17 by podiatry Wound VAC Management per podiatry. Likely wound VAC to be discontinued likely tomorrow 01/14/17 Currently on IV vancomycin and by mouth and s/p Levaquin per infectious disease specialist Pain management accordingly Multiple lesions on right leg: More consistent with impetigo per ID. -Continue on antibiotics as above per ID DVT prophylaxis: Lovenox Discharge Planning Patient likely will be discharged 01/14/17 pending final recommendation from podiatry Problem Qualifiers (1) Cellulitis: Qualified Codes: L03.116 - Cellulitis of left lower limb Adonay Zuluaga MD Jan 13, 2017 10:47
[2017-01-13 12:00] VITALS: BP 130/73; PULSE 77; RESP 18; TEMP 98.3; O2SAT 98
[2017-01-13 16:00] VITALS: BP 118/69; PULSE 66; RESP 18; TEMP 98.1; O2SAT 97
[2017-01-14] VITALS: BP 121/71; PULSE 83; RESP 20; TEMP 97.6; O2SAT 97
[2017-01-14] MEDS: oxyCODONE/ACETAMINOPHEN 10 MG/325 MG TAB PO PRN ×5 (01:16→21:11)
[2017-01-14] MEDS: VANCOMYCIN INJ 1,500 MG in SODIUM CHLORID 0.9% 500 ML INJ 500 ML IV SCH ×2 (01:37→14:30)
[2017-01-14] MEDS: ENOXAPARIN SODIUM 40 MG/0.4 ML SYRINGE SQ SCH (01:38)
[2017-01-14 04:00] VITALS: BP 136/78; PULSE 82; RESP 20; TEMP 97.8; O2SAT 96
[2017-01-14] MEDS: MORPHINE SULFATE 2 MG/ML INJ IV PUSH PRN ×5 (04:48→21:57)
[2017-01-14] MEDS: COLLAGENASE OINT 30 GM TUBE TOPICAL SCH (08:10)
[2017-01-14] MEDS: SODIUM CHLORIDE 0.9% FLUSH 10 ML FLUSH IV FLUSH SCH ×2 (08:10→21:11)
[2017-01-14 08:52] VITALS: BP 128/74; PULSE 70; RESP 16; TEMP 97.6; O2SAT 98
--- NOTE | 2017-01-14 10:04 | HHI.PR ---
Subjective Remarks Written by Natalya Barba, acting as scribe for Dr. Zuluaga on 01/14/17 at 10: 04. Follow-up on patient with bilateral lower extremity infected wounds, left calf abscess status post I&D and wound VAC application. Patient seen and examined. Patient denies any complaints at present. States he slept well. Pain is well- controlled. Denies any fever or chills. He denies any chest pain, cough or shortness of breath. Denies any nausea, vomiting or abdominal pain. He is hoping to be discharged the next day or 2. Discussed with nursing staff, case management consulted by podiatry to assist with approval for Apligraf x 2 units. Objective Vitals Vital Signs Date Time Temp Pulse Resp B/P (MAP) Pulse Ox O2 Delivery O2 Flow Rate FiO2 01/14/17 08:52 97.6 70 16 128/74 (92) 98 01/14/17 04:00 97.8 82 20 136/78 (97) 96 01/14/17 00:00 97.6 83 20 121/71 (88) 97 01/13/17 16:00 98.1 66 18 118/69 (85) 97 01/13/17 14:40 16 01/13/17 13:45 16 01/13/17 12:00 98.3 77 18 130/73 (92) 98 I/O 01/13/17 01/13/17 01/13/17 01/14/17 01/14/17 01/14/17 07:00 15:00 23:00 07:00 15:00 23:00 Intake Total 240 ml 240 ml Balance 240 ml 240 ml Intake Oral 240 ml 240 ml # Voids 1 1 1 Result Diagram: 01/13/17 1643 Imaging Last Impressions Lower Extremity MRI 01/04/17 0000 Signed Impressions: Service Date/Time: Wednesday, January 04, 2017 15:21 - CONCLUSION: Ulcerated inflammatory process process confined to the subcutaneous tissues. Skyler Jose MD FACR Objective Remarks GENERAL: Well-nourished, well-developed patient in NAD. Lying in hospital bed. Awake and alert. Appears comfortable. SKIN: Warm and dry. No rash. Status post I&D with wound VAC application left lower extremity. Seal appears to be intact with no leakage appreciated. HEAD: Normocephalic. Atraumatic. EYES: EOMI. No scleral icterus. No injection or drainage. ENT: No nasal bleeding or discharge. Mucous membranes pink and moist. NECK: Supple. Trachea midline. CARDIOVASCULAR: Regular rate and rhythm. S1, S2 noted. No murmur appreciated. RESPIRATORY: No accessory muscle use. Clear to auscultation. Breath sounds equal bilaterally. GASTROINTESTINAL: Abdomen soft, non-tender, nondistended. Normoactive bowel sounds x4. MUSCULOSKELETAL: Extremities without clubbing, cyanosis, or edema. NEUROLOGICAL: Awake and alert. Able to move all extremities. Nonfocal. Normal speech. PSYCHIATRIC: Appropriate mood and affect; insight and judgment normal. Procedures 01/05/17 Incision and drainage, debridement of calf with subfascial exploration with application of wound VAC 01/08/17 Left calf Incision drainage calf with wound vac application Medications and IVs Current Medications Medications (Trade) Dose Ordered Sig/Jacklyn Route Start Time Stop Time Status Last Admin (NS Flush) 2 ml UNSCH PRN IV FLUSH 01/04/17 00:15 01/11/17 04:59 (NS Flush) 2 ml BID IV FLUSH 01/04/17 09:00 01/14/17 08:10 (Zofran Inj) 4 mg Q6H PRN IVP 01/04/17 00:15 (Lovenox Inj) 40 mg Q24H SQ 01/04/17 02:00 Future hold 01/12/17 01:12 (Jupiter 5-325 Mg) 1 tab Q4H PRN PO 01/04/17 00:15 01/09/17 12:17 (Narcan Inj) 0.4 mg UNSCH PRN IV PUSH 01/04/17 00:15 Pharmacy Profile Note 0 ml @ 0 mls/hr UNSCH OTHER 01/04/17 00:15 (Santyl Oint) 1 applic DAILY TOPICAL 01/04/17 18:00 01/09/17 08:06 (Morphine Inj) 2 mg Q3H PRN IV PUSH 01/05/17 07:45 01/14/17 09:49 Vancomycin HCl 1500 mg/Sodium Chloride 515 ml @ 250 mls/hr Q12H IV 01/08/17 15:00 01/14/17 01:37 (Percocet 10-325 Mg) 1 tab Q4H PRN PO 01/09/17 11:15 01/14/17 08:10 Miscellaneous Information SPECIFIC LAB TO BE VANDANA... ONCE ONCE .XX 01/15/17 02:45 01/15/17 02:46 A/P Problem List: (1) Cellulitis ICD Code: L03.90 - Cellulitis, unspecified Status: Acute (2) Abscess of leg without foot, left ICD Code: L02.416 - Cutaneous abscess of left lower limb Assessment and Plan 41-year-old man with Left calf ulceration with surrounding cellulitis Left lower extremity abscess Status post Incision and drainage, debridement of calf with subfascial exploration with application of wound VAC 01/08/17 Left calf Incision drainage calf with wound vac application per podiatry Podiatry planning for skin graft change at the bedside and has requested case management assistance for approval for Apligraf 2 units. Discussed with case management who is actively proceeding with approval process. Continue wound VAC until graft placed on wound per podiatry Currently on IV vancomycin and s/p Levaquin per infectious disease specialist. Patient to be discharged on clindamycin 300 mg 4 times a day 10 day per ID. Continue to monitor creatinine QOD. Stable. Pain management accordingly Multiple lesions on right leg: More consistent with impetigo per ID. Continue on antibiotics as above per ID DVT prophylaxis: Lovenox Encouraged ambulation This note was transcribed by konstantin Barba. I, Dr. Adonay Zuluaga personally performed the history, physical exam, and medical decision making; and confirmed the accuracy of the information in the transcribed note. Authenticated by Dr. Adonay Zuluaga on 01/14/17 at 10:04. Discharge Planning Approval for Apligraf x 2 units with bedside change per podiatry Problem Qualifiers (1) Cellulitis: Qualified Codes: L03.116 - Cellulitis of left lower limb Natalya Barba Jan 14, 2017 10:04 Adonay Zuluaga MD Jan 14, 2017 10:05
[2017-01-14 12:51] VITALS: BP 156/71; PULSE 69; RESP 17; TEMP 97.3; O2SAT 98
[2017-01-14 15:54] VITALS: BP 137/88; PULSE 79; RESP 18; TEMP 98.2; O2SAT 98
[2017-01-14] MEDS ORDERED: ALPRAZolam 1 MG TAB PO ONE (18:00)
[2017-01-14 22:13] VITALS: BP 159/70; PULSE 96; RESP 20; TEMP 97.6; O2SAT 100
[2017-01-15] VITALS (7 sets, daily range): BP systolic 123–144; BP diastolic 58–85; PULSE 55–86; RESP 17–20; TEMP 97.6–98.2; O2SAT 94–98
[2017-01-15] MEDS: ENOXAPARIN SODIUM 40 MG/0.4 ML SYRINGE SQ SCH (02:00)
[2017-01-15] MEDS: MORPHINE SULFATE 2 MG/ML INJ IV PUSH PRN ×5 (02:09→21:52)
[2017-01-15] MEDS ORDERED: PHARMACY ORDERED LAB ONE (02:45)
[2017-01-15] MEDS: VANCOMYCIN INJ 1,500 MG in SODIUM CHLORID 0.9% 500 ML INJ 500 ML IV SCH ×2 (03:00→15:05)
[2017-01-15] MEDS: oxyCODONE/ACETAMINOPHEN 10 MG/325 MG TAB PO PRN ×4 (09:46→21:45)
[2017-01-15] MEDS: SODIUM CHLORIDE 0.9% FLUSH 10 ML FLUSH IV FLUSH SCH ×2 (09:46→21:00)
[2017-01-15] MEDS: COLLAGENASE OINT 30 GM TUBE TOPICAL SCH (09:48)
--- NOTE | 2017-01-15 11:44 | HHI.PR ---
Subjective Remarks Follow-up on patient with bilateral lower extremity infected wounds, left calf abscess status post I&D and wound VAC application. Patient seen and examined. Patient denies any complaints at present. States he slept well. Pain is well- controlled. Denies any fever or chills. He denies any chest pain, cough or shortness of breath. Denies any nausea, vomiting or abdominal pain. He is hoping to be discharged the next day or 2. Discussed with nursing staff, case management consulted by podiatry to assist with approval for Apligraf x 5 units. 01-15 REFUSING LOVENOX AND LABS TODAY REFUSING LABS Objective Vitals Vital Signs Date Time Temp Pulse Resp B/P (MAP) Pulse Ox O2 Delivery O2 Flow Rate FiO2 01/15/17 08:44 97.6 55 17 125/76 (92) 98 01/15/17 05:51 97.6 60 20 123/58 (79) 97 01/15/17 01:24 98.1 79 20 131/81 (98) 97 01/15/17 01:14 98.1 79 20 131/81 (98) 97 01/14/17 22:13 97.6 96 20 159/70 (99) 100 01/14/17 15:54 98.2 79 18 137/88 (104) 98 01/14/17 12:51 97.3 69 17 156/71 (99) 98 I/O 01/14/17 01/14/17 01/14/17 01/15/17 01/15/17 01/15/17 07:00 15:00 23:00 07:00 15:00 23:00 Intake Total 760 ml 200 ml Balance 760 ml 200 ml Intake Oral 760 ml IV Total 200 ml # Voids 1 3 1 Result Diagram: 01/13/17 1643 Other Results Laboratory Tests Test 01/13/17 16:43 Creatinine 1.05 MG/DL Estimat Glomerular Filtration Rate 78 ML/MIN Imaging Last Impressions Lower Extremity MRI 01/04/17 0000 Signed Impressions: Service Date/Time: Wednesday, January 04, 2017 15:21 - CONCLUSION: Ulcerated inflammatory process process confined to the subcutaneous tissues. Skyler Jose MD FACR Objective Remarks GENERAL: Well-nourished, well-developed patient in NAD. Lying in hospital bed. Awake and alert. Appears comfortable. SKIN: Warm and dry. No rash. Status post I&D with wound DRESSED. NO WOUND VACC ANYMORE AT THIS JAMMIE HEAD: Normocephalic. Atraumatic. EYES: EOMI. No scleral icterus. No injection or drainage. EOMI ENT: No nasal bleeding or discharge. Mucous membranes pink and moist. TONGUE MIDLINE NECK: Supple. Trachea midline. CARDIOVASCULAR: Regular rate and rhythm. S1, S2 noted. No murmur appreciated. NO S3 OR S4 RESPIRATORY: No accessory muscle use. Clear to auscultation. Breath sounds equal bilaterally. GASTROINTESTINAL: Abdomen soft, non-tender, nondistended. Normoactive bowel sounds x4. MUSCULOSKELETAL: Extremities without clubbing, cyanosis, or edema. LE DRESSED NEUROLOGICAL: Awake and alert. Able to move all extremities. Nonfocal. Normal speech. PSYCHIATRIC: Appropriate mood and affect; insight and judgment normal. Procedures 01/05/17 Incision and drainage, debridement of calf with subfascial exploration with application of wound VAC 01/08/17 Left calf Incision drainage calf with wound vac application Medications and IVs Current Medications Sodium Chloride 1,000 ml @ 83 mls/hr Q12H3M IV ; Start 01/04/17 at 00:15; Stop 01/04/17 at 09:14; Status DC Sodium Chloride (NS Flush) 2 ml UNSCH PRN IV FLUSH FLUSH AFTER USING IV ACCESS Last administered on 01/11/17 04:59; Start 01/04/17 at 00:15 Sodium Chloride (NS Flush) 2 ml BID IV FLUSH Last administered on 01/15/17 09 :46; Start 01/04/17 at 09:00 Ondansetron HCl (Zofran Inj) 4 mg Q6H PRN IVP NAUSEA OR VOMITING; Start at 00:15 Enoxaparin Sodium (Lovenox Inj) 40 mg Q24H SQ Last administered on 01/12/17 01:12; Start 01/04/17 at 02:00; Status Future hold Acetaminophen/ Hydrocodone Bitart ([place] 5-325 Mg) 1 tab Q4H PRN PO PAIN SCALE 3 TO 5 Last administered on 01/09/17 12:17; Start 01/04/17 at 00:15 Acetaminophen/ Hydrocodone Bitart ([place] 10-325 Mg) 1 tab Q4H PRN PO PAIN SCALE 6 TO 10 Last administered on 01/09/17 08:07; Start 01/04/17 at 00:15; Stop 01/09/17 at 11:16; Status DC Naloxone HCl (Narcan Inj) 0.4 mg UNSCH PRN IV PUSH SEE LABEL COMMENTS; Start 01/04/17 at 00:15 Vancomycin HCl 1000 mg/Sodium Chloride 250 ml @ 250 mls/hr ONCE ONCE IV ; Start 01/04/17 at 02:00; Stop 01/04/17 at 02:59; Status DC Pharmacy Profile Note 0 ml @ 0 mls/hr UNSCH OTHER ; Start 01/04/17 at 00:15 Itraconazole (Sporanox) 100 mg ONCE ONCE PO Last administered on 01/04/17 03 :09; Start 01/04/17 at 02:00; Stop 01/04/17 at 02:01; Status DC Itraconazole (Sporanox) 100 mg DAILY PO Last administered on 01/04/17 09:59; Start 01/04/17 at 09:00; Stop 01/04/17 at 16:16; Status DC Pneumococcal Polyvalent Vaccine (Pneumovax-23 Inj) 25 mcg ONCE ONCE IM ; Start 01/05/17 at 09:00; Stop 01/05/17 at 09:01; Status DC Sodium Chloride 1,000 ml @ 83 mls/hr Q12H3M IV Last administered on 21:09; Start 01/04/17 at 09:00; Stop 01/07/17 at 16:05; Status DC Vancomycin HCl 1000 mg/Sodium Chloride 250 ml @ 250 mls/hr ONCE ONCE IV ; Start 01/04/17 at 11:00; Stop 01/04/17 at 11:41; Status DC Vancomycin HCl 1250 mg/Sodium Chloride 262.5 ml @ 250 mls/hr Q12H IV Last administered on 01/08/17 03:52; Start 01/04/17 at 15:00; Stop 01/08/17 at 11 :29; Status DC Miscellaneous Information SPECIFIC LAB TO BE ... ONCE ONCE .XX ; Start at 02:45; Stop 01/06/17 at 02:46; Status DC Gadodiamide (Omniscan Pf Inj) 16 ml STK-MED ONCE IVCONTRAST Last administered on 01/04/17 16:03; Start 01/04/17 at 16:03; Stop 01/04/17 at 16:04; Status DC Collagenase (Santyl Oint) 1 applic DAILY TOPICAL Last administered on 09:48; Start 01/04/17 at 18:00 Levofloxacin (Levaquin) 750 mg DAILY PO Last administered on 01/12/17 08:38; Start 01/04/17 at 18:00; Stop 01/12/17 at 13:17; Status DC Bupivacaine HCl (Marcaine Pf 0.25% Inj) 30 ml STK-MED ONCE .ROUTE ; Start 01/05 at 07:12; Stop 01/05/17 at 07:13; Status DC Morphine Sulfate (Morphine Inj) 2 mg Q3H PRN IV PUSH BREAKTHROUGH PAIN Last administered on 01/15/17 10:53; Start 01/05/17 at 07:45 Morphine Sulfate (*morphine INJ PERIprocedure ONLY) 8 mg STK-MED ONCE .ROUTE Last administered on 01/05/17 09:09; Start 01/05/17 at 09:09; Stop 01/05/17 at 09:10; Status DC Meperidine HCl (*DEMEROL INJ PERIprocedural ONLY) 25 mg STK-MED ONCE .ROUTE Last administered on 01/05/17 09:10; Start 01/05/17 at 09:10; Stop 01/05/17 at 09:11; Status DC Morphine Sulfate (*morphine INJ PERIprocedure ONLY) 8 mg STK-MED ONCE .ROUTE Last administered on 01/05/17 09:21; Start 01/05/17 at 09:21; Stop 01/05/17 at 09:22; Status DC Hydromorphone HCl (*DILAUDID PF INJ PERIprocedural ONLY) 1 mg STK-MED ONCE .ROUTE Last administered on 01/05/17 09:29; Start 01/05/17 at 09:29; Stop 01/05/17 at 09:30; Status DC Miscellaneous Information ALL NURSING DEPARTME... UNSCH PRN .XX SEE LABEL COMMENTS; Start 01/05/17 at 09:00; Stop 01/06/17 at 08:59; Status DC Miscellaneous Information ALL NURSING DEPARTME... UNSCH PRN .XX SEE LABEL COMMENTS; Start 01/05/17 at 09:05; Stop 01/06/17 at 09:04; Status DC Influenza Virus Vaccine (Flu (Quadrivalent) Vaccine Inj) 0.5 ml ONCE ONCE IM ; Start 01/06/17 at 10:00; Stop 01/06/17 at 10:01; Status DC Miscellaneous Information SPECIFIC LAB TO BE DRAWN:VANCO DATE TO... ONCE ONCE .XX Last administered on 01/07/17 02:45; Start 01/07/17 at 02:45; Stop at 02:46; Status DC Lactated Ringer's 1,000 ml @ 30 mls/hr Q24H PRN IV SEE LABEL COMMENTS; Start 01/07/17 at 19:15; Stop 01/10/17 at 19:14; Status DC Sodium Chloride 500 ml @ 30 mls/hr [id number] PRN IV SEE LABEL COMMENTS; Start at 19:15; Stop 01/10/17 at 19:14; Status DC Metoprolol Tartrate (Lopressor) 25 mg OCCUPATIONAL PHYSICIAN PRN PO SEE LABEL COMMENTS; Start 01/07/17 at 19:15; Stop 01/10/17 at 19:14; Status DC Povidone Iodine (Betadine 5% Antisepsis Kit) 1 applic OCCUPATIONAL PHYSICIAN PRN EACH NARE SEE LABEL COMMENTS; Start 01/07/17 at 19:15; Stop 01/10/17 at 19:14; Status DC Chlorhexidine Gluconate (Chlorhexidine 2% Cloth) 3 pack OCCUPATIONAL PHYSICIAN PRN TOPICAL SEE LABEL COMMENTS; Start 01/07/17 at 19:15; Stop 01/10/17 at 19:14; Status DC Insulin Human Regular (NovoLIN R INJ) See Protocol Table ... OCCUPATIONAL PHYSICIAN PRN SQ SEE PROTOCOL TABLE; Start 01/07/17 at 19:15; Stop 01/10/17 at 19:14; Status DC Vancomycin HCl 1500 mg/Sodium Chloride 515 ml @ 250 mls/hr Q12H IV Last administered on 01/14/17 14:30; Start 01/08/17 at 15:00 Miscellaneous Information SPECIFIC LAB TO BE DRAWN:VANCOMYCIN TROUGH DATE TO... ONCE ONCE .XX Last administered on 01/10/17 04:20; Start 01/10/17 at 02:45 ; Stop 01/10/17 at 02:46; Status DC Bupivacaine HCl (Marcaine Pf 0.25% Inj) 30 ml STK-MED ONCE .ROUTE ; Start 01/08 at 13:59; Stop 01/08/17 at 14:00; Status DC Acetaminophen 0 ml @ As Directed STK-MED ONCE IV ; Start 01/08/17 at 14:13; Stop 01/08/17 at 14:14; Status DC Hydromorphone HCl (Dilaudid Pf Inj) 2 mg STK-MED ONCE .ROUTE ; Start 01/08/17 at 14:44; Stop 01/08/17 at 14:45; Status DC Hydromorphone HCl (*DILAUDID PF INJ PERIprocedural ONLY) 1 mg STK-MED ONCE .ROUTE Last administered on 01/08/17 16:10; Start 01/08/17 at 16:10; Stop 01/08/17 at 16:11; Status DC Miscellaneous Information ALL NURSING DEPARTME... UNSCH PRN .XX SEE LABEL COMMENTS; Start 01/08/17 at 15:52; Stop 01/09/17 at 15:51; Status DC Oxycodone/ Acetaminophen (Percocet 10-325 Mg) 1 tab Q4H PRN PO pain >5 Last administered on 01/15/17 09:46; Start 01/09/17 at 11:15 Hydromorphone HCl (Dilaudid) 2 mg ONCE ONCE PO Last administered on 01:08; Start 01/11/17 at 23:45; Stop 01/11/17 at 23:46; Status DC Alprazolam (Xanax) 1 mg ONCE ONCE PO Last administered on 01/12/17 17:53; Start 01/12/17 at 17:45; Stop 01/12/17 at 17:46; Status DC Miscellaneous Information SPECIFIC LAB TO BE VANDANA... ONCE ONCE .XX ; Start at 02:45; Stop 01/15/17 at 02:46; Status DC Alprazolam (Xanax) 1 mg NOW ONCE PO Last administered on 01/14/17 18:07; Start 01/14/17 at 18:00; Stop 01/14/17 at 18:01; Status DC A/P Problem List: (1) Cellulitis ICD Code: L03.90 - Cellulitis, unspecified Status: Acute (2) Abscess of leg without foot, left ICD Code: L02.416 - Cutaneous abscess of left lower limb (3) Noncompliance ICD Code: Z91.19 - Patient's noncompliance with other medical treatment and regimen Assessment and Plan 41-year-old man with Left calf ulceration with surrounding cellulitis Left lower extremity abscess Status post Incision and drainage, debridement of calf with subfascial exploration with application of wound VAC 01/08/17 Left calf Incision drainage calf with wound vac application per podiatry Podiatry planning for skin graft change at the bedside and has requested case management assistance for approval for Apligraf 5 units. Discussed with case management who is actively proceeding with approval process. Continue wound VAC until graft placed on wound per podiatry Currently on IV vancomycin and s/p Levaquin per infectious disease specialist. Patient to be discharged on clindamycin 300 mg 4 times a day 10 day per ID. Continue to monitor creatinine QOD. Stable. Pain management accordingly Multiple lesions on right leg: More consistent with impetigo per ID. Continue on antibiotics as above per ID DVT prophylaxis: Lovenox Encouraged ambulation NONCOMPLIANCE REFUSING LABS AND LOVENOX Discharge Planning Apligraf 5 units NEEDED PRIOR TO DC FOR FOLLOW UP Problem Qualifiers (1) Cellulitis: Qualified Codes: L03.116 - Cellulitis of left lower limb Skyler Mayberry DO Jan 15, 2017 11:44
--- NOTE | 2017-01-15 21:22 | PD.POD ---
Subjective Podiatric Problems s/p multiple I and D Left leg with Dr Yang. Seen at bedside this am in NAD. Pain scale used: 0-10 numeric scale Pain score: 0 Past Med/Surg/Social History Social History Smoking Status: Never Smoker Objective Vital Signs Vital Signs Date Time Temp Pulse Resp B/P (MAP) Pulse Ox O2 Delivery O2 Flow Rate FiO2 01/15/17 17:19 97.8 84 18 134/85 (101) 98 01/15/17 12:53 98.0 86 18 138/73 (94) 94 01/15/17 08:44 97.6 55 17 125/76 (92) 98 01/15/17 05:51 97.6 60 20 123/58 (79) 97 01/15/17 01:24 98.1 79 20 131/81 (98) 97 01/15/17 01:14 98.1 79 20 131/81 (98) 97 01/14/17 22:13 97.6 96 20 159/70 (99) 100 Coded Allergies: penicillin G (Verified Allergy, Severe, 01/03/17) Other Results Laboratory Tests Test 01/15/17 16:40 Creatinine 0.93 MG/DL Estimat Glomerular Filtration Rate 90 ML/MIN Exam-Podiatry Dermatological Exam Ulcers: Location/Measurements LLE left posterior medial leg, intact sutures, well granular. No erythema and no edema and no acute soi. Leg is warm to warm and no streaking. Muscle strength is intact. No numbness Assessment & Plan Diagnosis: (1) Cellulitis ICD Codes: L03.90 - Cellulitis, unspecified Status: Acute (2) Abscess of leg without foot, left ICD Codes: L02.416 - Cutaneous abscess of left lower limb A/P Pending Left leg Apligraft Pending Case Management. William with Case Management is considering outpatient wound care application. I am ok with application at bedside or outpatient. Plan for d/c after 1 unit of Apligraft, left leg and f/u with dr Hoffmann as an outpatient. Problem Qualifiers (1) Cellulitis: Qualified Codes: L03.116 - Cellulitis of left lower limb Darlene Castro DPM Jan 15, 2017 21:22
[2017-01-16] VITALS: BP 157/80; PULSE 85; RESP 20; TEMP 97.6; O2SAT 100
[2017-01-16] MEDS: MORPHINE SULFATE 2 MG/ML INJ IV PUSH PRN ×4 (00:56→10:10)
[2017-01-16] MEDS: ENOXAPARIN SODIUM 40 MG/0.4 ML SYRINGE SQ SCH (02:00)
[2017-01-16] MEDS: VANCOMYCIN INJ 1,500 MG in SODIUM CHLORID 0.9% 500 ML INJ 500 ML IV SCH (02:19)
[2017-01-16] MEDS: ACETAMINOPHEN/HYDROcodone 325 MG/5 MG TAB PO PRN (02:19)
[2017-01-16] MEDS: oxyCODONE/ACETAMINOPHEN 10 MG/325 MG TAB PO PRN ×3 (02:27→11:38)
[2017-01-16 04:00] VITALS: BP 123/64; PULSE 63; RESP 18; TEMP 98.1; O2SAT 97
[2017-01-16 08:40] VITALS: BP 118/65; PULSE 66; RESP 18; TEMP 97.5; O2SAT 97
[2017-01-16] MEDS: COLLAGENASE OINT 30 GM TUBE TOPICAL SCH (09:00)
[2017-01-16] MEDS: SODIUM CHLORIDE 0.9% FLUSH 10 ML FLUSH IV FLUSH SCH (10:10)
--- NOTE | 2017-01-16 11:57 | HHI.PR ---
Subjective Remarks Follow-up on patient with bilateral lower extremity infected wounds, left calf abscess status post I&D and wound VAC application. Patient seen and examined. Patient denies any complaints at present. States he slept well. Pain is well- controlled. Denies any fever or chills. He denies any chest pain, cough or shortness of breath. Denies any nausea, vomiting or abdominal pain. He is hoping to be discharged the next day or 2. Discussed with nursing staff, case management consulted by podiatry to assist with approval for Apligraf x 5 units. 01-15 REFUSING LOVENOX AND LABS TODAY REFUSING LABS 01-16 HOPEFULLY DC TO HOME TODAY TO FOLLOW UP IN WOUND CARE CLINIC ON SATURDAY DC TO HOME Objective Vitals Vital Signs Date Time Temp Pulse Resp B/P (MAP) Pulse Ox O2 Delivery O2 Flow Rate FiO2 01/16/17 08:40 97.5 66 18 118/65 (82) 97 01/16/17 04:00 98.1 63 18 123/64 (83) 97 01/16/17 00:00 97.6 85 20 157/80 (105) 100 01/15/17 20:00 98.2 62 18 144/76 (98) 98 01/15/17 17:19 97.8 84 18 134/85 (101) 98 01/15/17 12:53 98.0 86 18 138/73 (94) 94 I/O 01/15/17 01/15/17 01/15/17 01/16/17 01/16/17 01/16/17 07:00 15:00 23:00 07:00 15:00 23:00 Intake Total 480 ml 500 ml 500 ml Output Total 400 ml Balance 80 ml 500 ml 500 ml Intake Oral 480 ml IV Total 500 ml 500 ml Output Urine Total 400 ml # Voids 5 # Bowel Movements 0 Result Diagram: 01/15/17 1640 Other Results Laboratory Tests Test 01/13/17 16:43 01/15/17 16:40 Creatinine 1.05 MG/DL 0.93 MG/DL Estimat Glomerular Filtration Rate 78 ML/MIN 90 ML/MIN Vancomycin Level Trough 7.5 MCG/ML Imaging Last Impressions Lower Extremity MRI 01/04/17 0000 Signed Impressions: Service Date/Time: Wednesday, January 04, 2017 15:21 - CONCLUSION: Ulcerated inflammatory process process confined to the subcutaneous tissues. Skyler Jose MD FACR Objective Remarks GENERAL: Well-nourished, well-developed patient in NAD. Lying in hospital bed. Awake and alert. Appears comfortable. SKIN: Warm and dry. No rash. Status post I&D with wound DRESSED. NO WOUND VACC ANYMORE AT THIS JAMMIE HEAD: Normocephalic. Atraumatic. EYES: EOMI. No scleral icterus. No injection or drainage. EOMI ENT: No nasal bleeding or discharge. Mucous membranes pink and moist. TONGUE MIDLINE NECK: Supple. Trachea midline. CARDIOVASCULAR: Regular rate and rhythm. S1, S2 noted. No murmur appreciated. NO S3 OR S4 RESPIRATORY: No accessory muscle use. Clear to auscultation. Breath sounds equal bilaterally. GASTROINTESTINAL: Abdomen soft, non-tender, nondistended. Normoactive bowel sounds x4. MUSCULOSKELETAL: Extremities without clubbing, cyanosis, or edema. LE DRESSED NEUROLOGICAL: Awake and alert. Able to move all extremities. Nonfocal. Normal speech. PSYCHIATRIC: Appropriate mood and affect; insight and judgment normal. Procedures 01/05/17 Incision and drainage, debridement of calf with subfascial exploration with application of wound VAC 01/08/17 Left calf Incision drainage calf with wound vac application Medications and IVs Current Medications Sodium Chloride 1,000 ml @ 83 mls/hr Q12H3M IV ; Start 01/04/17 at 00:15; Stop 01/04/17 at 09:14; Status DC Sodium Chloride (NS Flush) 2 ml UNSCH PRN IV FLUSH FLUSH AFTER USING IV ACCESS Last administered on 01/11/17 04:59; Start 01/04/17 at 00:15 Sodium Chloride (NS Flush) 2 ml BID IV FLUSH Last administered on 01/16/17 10 :10; Start 01/04/17 at 09:00 Ondansetron HCl (Zofran Inj) 4 mg Q6H PRN IVP NAUSEA OR VOMITING; Start at 00:15 Enoxaparin Sodium (Lovenox Inj) 40 mg Q24H SQ Last administered on 01/12/17 01:12; Start 01/04/17 at 02:00; Status Future hold Acetaminophen/ Hydrocodone Bitart ([place] 5-325 Mg) 1 tab Q4H PRN PO PAIN SCALE 3 TO 5 Last administered on 01/09/17 12:17; Start 01/04/17 at 00:15 Acetaminophen/ Hydrocodone Bitart ([place] 10-325 Mg) 1 tab Q4H PRN PO PAIN SCALE 6 TO 10 Last administered on 01/09/17 08:07; Start 01/04/17 at 00:15; Stop 01/09/17 at 11:16; Status DC Naloxone HCl (Narcan Inj) 0.4 mg UNSCH PRN IV PUSH SEE LABEL COMMENTS; Start 01/04/17 at 00:15 Vancomycin HCl 1000 mg/Sodium Chloride 250 ml @ 250 mls/hr ONCE ONCE IV ; Start 01/04/17 at 02:00; Stop 01/04/17 at 02:59; Status DC Pharmacy Profile Note 0 ml @ 0 mls/hr UNSCH OTHER ; Start 01/04/17 at 00:15 Itraconazole (Sporanox) 100 mg ONCE ONCE PO Last administered on 01/04/17 03 :09; Start 01/04/17 at 02:00; Stop 01/04/17 at 02:01; Status DC Itraconazole (Sporanox) 100 mg DAILY PO Last administered on 01/04/17 09:59; Start 01/04/17 at 09:00; Stop 01/04/17 at 16:16; Status DC Pneumococcal Polyvalent Vaccine (Pneumovax-23 Inj) 25 mcg ONCE ONCE IM ; Start 01/05/17 at 09:00; Stop 01/05/17 at 09:01; Status DC Sodium Chloride 1,000 ml @ 83 mls/hr Q12H3M IV Last administered on 21:09; Start 01/04/17 at 09:00; Stop 01/07/17 at 16:05; Status DC Vancomycin HCl 1000 mg/Sodium Chloride 250 ml @ 250 mls/hr ONCE ONCE IV ; Start 01/04/17 at 11:00; Stop 01/04/17 at 11:41; Status DC Vancomycin HCl 1250 mg/Sodium Chloride 262.5 ml @ 250 mls/hr Q12H IV Last administered on 01/08/17 03:52; Start 01/04/17 at 15:00; Stop 01/08/17 at 11 :29; Status DC Miscellaneous Information SPECIFIC LAB TO BE ... ONCE ONCE .XX ; Start at 02:45; Stop 01/06/17 at 02:46; Status DC Gadodiamide (Omniscan Pf Inj) 16 ml STK-MED ONCE IVCONTRAST Last administered on 01/04/17 16:03; Start 01/04/17 at 16:03; Stop 01/04/17 at 16:04; Status DC Collagenase (Santyl Oint) 1 applic DAILY TOPICAL Last administered on 09:48; Start 01/04/17 at 18:00 Levofloxacin (Levaquin) 750 mg DAILY PO Last administered on 01/12/17 08:38; Start 01/04/17 at 18:00; Stop 01/12/17 at 13:17; Status DC Bupivacaine HCl (Marcaine Pf 0.25% Inj) 30 ml STK-MED ONCE .ROUTE ; Start 01/05 at 07:12; Stop 01/05/17 at 07:13; Status DC Morphine Sulfate (Morphine Inj) 2 mg Q3H PRN IV PUSH BREAKTHROUGH PAIN Last administered on 01/16/17 10:10; Start 01/05/17 at 07:45 Morphine Sulfate (*morphine INJ PERIprocedure ONLY) 8 mg STK-MED ONCE .ROUTE Last administered on 01/05/17 09:09; Start 01/05/17 at 09:09; Stop 01/05/17 at 09:10; Status DC Meperidine HCl (*DEMEROL INJ PERIprocedural ONLY) 25 mg STK-MED ONCE .ROUTE Last administered on 01/05/17 09:10; Start 01/05/17 at 09:10; Stop 01/05/17 at 09:11; Status DC Morphine Sulfate (*morphine INJ PERIprocedure ONLY) 8 mg STK-MED ONCE .ROUTE Last administered on 01/05/17 09:21; Start 01/05/17 at 09:21; Stop 01/05/17 at 09:22; Status DC Hydromorphone HCl (*DILAUDID PF INJ PERIprocedural ONLY) 1 mg STK-MED ONCE .ROUTE Last administered on 01/05/17 09:29; Start 01/05/17 at 09:29; Stop 01/05/17 at 09:30; Status DC Miscellaneous Information ALL NURSING DEPARTME... UNSCH PRN .XX SEE LABEL COMMENTS; Start 01/05/17 at 09:00; Stop 01/06/17 at 08:59; Status DC Miscellaneous Information ALL NURSING DEPARTME... UNSCH PRN .XX SEE LABEL COMMENTS; Start 01/05/17 at 09:05; Stop 01/06/17 at 09:04; Status DC Influenza Virus Vaccine (Flu (Quadrivalent) Vaccine Inj) 0.5 ml ONCE ONCE IM ; Start 01/06/17 at 10:00; Stop 01/06/17 at 10:01; Status DC Miscellaneous Information SPECIFIC LAB TO BE DRAWN:VANCO DATE TO... ONCE ONCE .XX Last administered on 01/07/17 02:45; Start 01/07/17 at 02:45; Stop at 02:46; Status DC Lactated Ringer's 1,000 ml @ 30 mls/hr Q24H PRN IV SEE LABEL COMMENTS; Start 01/07/17 at 19:15; Stop 01/10/17 at 19:14; Status DC Sodium Chloride 500 ml @ 30 mls/hr [id number] PRN IV SEE LABEL COMMENTS; Start at 19:15; Stop 01/10/17 at 19:14; Status DC Metoprolol Tartrate (Lopressor) 25 mg CLINICAL RESEARCH MANAGER PRN PO SEE LABEL COMMENTS; Start 01/07/17 at 19:15; Stop 01/10/17 at 19:14; Status DC Povidone Iodine (Betadine 5% Antisepsis Kit) 1 applic CLINICAL RESEARCH MANAGER PRN EACH NARE SEE LABEL COMMENTS; Start 01/07/17 at 19:15; Stop 01/10/17 at 19:14; Status DC Chlorhexidine Gluconate (Chlorhexidine 2% Cloth) 3 pack CLINICAL RESEARCH MANAGER PRN TOPICAL SEE LABEL COMMENTS; Start 01/07/17 at 19:15; Stop 01/10/17 at 19:14; Status DC Insulin Human Regular (NovoLIN R INJ) See Protocol Table ... CLINICAL RESEARCH MANAGER PRN SQ SEE PROTOCOL TABLE; Start 01/07/17 at 19:15; Stop 01/10/17 at 19:14; Status DC Vancomycin HCl 1500 mg/Sodium Chloride 515 ml @ 250 mls/hr Q12H IV Last administered on 01/16/17 02:19; Start 01/08/17 at 15:00 Miscellaneous Information SPECIFIC LAB TO BE DRAWN:VANCOMYCIN TROUGH DATE TO... ONCE ONCE .XX Last administered on 01/10/17 04:20; Start 01/10/17 at 02:45 ; Stop 01/10/17 at 02:46; Status DC Bupivacaine HCl (Marcaine Pf 0.25% Inj) 30 ml STK-MED ONCE .ROUTE ; Start 01/08 at 13:59; Stop 01/08/17 at 14:00; Status DC Acetaminophen 0 ml @ As Directed STK-MED ONCE IV ; Start 01/08/17 at 14:13; Stop 01/08/17 at 14:14; Status DC Hydromorphone HCl (Dilaudid Pf Inj) 2 mg STK-MED ONCE .ROUTE ; Start 01/08/17 at 14:44; Stop 01/08/17 at 14:45; Status DC Hydromorphone HCl (*DILAUDID PF INJ PERIprocedural ONLY) 1 mg STK-MED ONCE .ROUTE Last administered on 01/08/17 16:10; Start 01/08/17 at 16:10; Stop 01/08/17 at 16:11; Status DC Miscellaneous Information ALL NURSING DEPARTME... UNSCH PRN .XX SEE LABEL COMMENTS; Start 01/08/17 at 15:52; Stop 01/09/17 at 15:51; Status DC Oxycodone/ Acetaminophen (Percocet 10-325 Mg) 1 tab Q4H PRN PO pain >5 Last administered on 01/16/17 11:38; Start 01/09/17 at 11:15 Hydromorphone HCl (Dilaudid) 2 mg ONCE ONCE PO Last administered on 01:08; Start 01/11/17 at 23:45; Stop 01/11/17 at 23:46; Status DC Alprazolam (Xanax) 1 mg ONCE ONCE PO Last administered on 01/12/17 17:53; Start 01/12/17 at 17:45; Stop 01/12/17 at 17:46; Status DC Miscellaneous Information SPECIFIC LAB TO BE VANDANA... ONCE ONCE .XX ; Start at 02:45; Stop 01/15/17 at 02:46; Status DC Alprazolam (Xanax) 1 mg NOW ONCE PO Last administered on 01/14/17t 18:07; Start 01/14/17 at 18:00; Stop 01/14/17 at 18:01; Status DC Urinary Catheter: No Vascular Central Line Catheter: No A/P Problem List: (1) Cellulitis ICD Code: L03.90 - Cellulitis, unspecified Status: Acute (2) Abscess of leg without foot, left ICD Code: L02.416 - Cutaneous abscess of left lower limb (3) Noncompliance ICD Code: Z91.19 - Patient's noncompliance with other medical treatment and regimen Assessment and Plan 41-year-old man with Left calf ulceration with surrounding cellulitis Left lower extremity abscess Status post Incision and drainage, debridement of calf with subfascial exploration with application of wound VAC 01/08/17 Left calf Incision drainage calf with wound vac application per podiatry Podiatry planning for skin graft change at the bedside and has requested case management assistance for approval for Apligraf 5 units. Discussed with case management who is actively proceeding with approval process. Continue wound VAC until graft placed on wound per podiatry Currently on IV vancomycin and s/p Levaquin per infectious disease specialist. Patient to be discharged on clindamycin 300 mg 4 times a day 10 day per ID. Continue to monitor creatinine QOD. Stable. Pain management accordingly Multiple lesions on right leg: More consistent with impetigo per ID. Continue on antibiotics as above per ID DVT prophylaxis: Lovenox Encouraged ambulation NONCOMPLIANCE REFUSING LABS AND LOVENOX DC TO HOME TODAY FOLLOW UP WOUND CARE CLINIC ON SATURDAY Discharge Planning DC TODAY FOLLOW UP WOUND CARE CLINIC FOR SATURDAY Problem Qualifiers (1) Cellulitis: Qualified Codes: L03.116 - Cellulitis of left lower limb Skyler Mayberry DO Jan 16, 2017 11:57
[2017-01-16] MEDS ORDERED: OXYC1TAB36 PO (12:03)
[2017-01-16] MEDS ORDERED: CLIN1CAP6 PO (12:03)
[2017-01-16] MEDS ORDERED: LACTCHW3 CHEW (12:04)
--- NOTE | 2017-01-16 12:07 | HHI.DS ---
Discharge Summary Admission Date Jan 04, 2017 at 01:25 Discharge Date: Jan 16, 2017 Admitting Diagnosis LE WOUNDS (1) Cellulitis ICD Code: L03.90 - Cellulitis, unspecified Diagnosis: Principal Status: Acute (2) Abscess of leg without foot, left ICD Code: L02.416 - Cutaneous abscess of left lower limb Diagnosis: Principal (3) Noncompliance ICD Code: Z91.19 - Patient's noncompliance with other medical treatment and regimen Diagnosis: Principal Procedures 01/05/17 Incision and drainage, debridement of calf with subfascial exploration with application of wound VAC 01/08/17 Left calf Incision drainage calf with wound vac application Brief History - From Admission 41 y/o male with no medical history presented to the ED with multiple scabbed lesions to right lower leg, and open wound on his left leg from a c[employer] plant that began 5 days. ago. Patient was seen and discharge at [facility] with Bactrim and given a clindamycin injection. He declined admission at that time, he then went home and returned to the ED for admission. He denies any chest pain , sob, fever or chills. CBC/BMP: 01/15/17 1640 Significant Findings Laboratory Tests Test 01/13/17 16:43 01/15/17 16:40 Estimat Glomerular Filtration Rate 78 ML/MIN (>89) Imaging Last Impressions Lower Extremity MRI 01/04/17 0000 Signed Impressions: Service Date/Time: Wednesday, January 04, 2017 15:21 - CONCLUSION: Ulcerated inflammatory process process confined to the subcutaneous tissues. Skyler Jose MD FACR PE at Discharge GENERAL: Well-nourished, well-developed patient in NAD. Lying in hospital bed. Awake and alert. Appears comfortable. SKIN: Warm and dry. No rash. Status post I&D with wound DRESSED. NO WOUND VACC ANYMORE AT THIS JAMMIE HEAD: Normocephalic. Atraumatic. EYES: EOMI. No scleral icterus. No injection or drainage. EOMI ENT: No nasal bleeding or discharge. Mucous membranes pink and moist. TONGUE MIDLINE NECK: Supple. Trachea midline. CARDIOVASCULAR: Regular rate and rhythm. S1, S2 noted. No murmur appreciated. NO S3 OR S4 RESPIRATORY: No accessory muscle use. Clear to auscultation. Breath sounds equal bilaterally. GASTROINTESTINAL: Abdomen soft, non-tender, nondistended. Normoactive bowel sounds x4. MUSCULOSKELETAL: Extremities without clubbing, cyanosis, or edema. LE DRESSED NEUROLOGICAL: Awake and alert. Able to move all extremities. Nonfocal. Normal speech. PSYCHIATRIC: Appropriate mood and affect; insight and judgment normal. Hospital Course Follow-up on patient with bilateral lower extremity infected wounds, left calf abscess status post I&D and wound VAC application. Patient seen and examined. Patient denies any complaints at present. States he slept well. Pain is well- controlled. Denies any fever or chills. He denies any chest pain, cough or shortness of breath. Denies any nausea, vomiting or abdominal pain. He is hoping to be discharged the next day or 2. Discussed with nursing staff, case management consulted by podiatry to assist with approval for Apligraf x 5 units. -24 REFUSING LOVENOX AND LABS TODAY REFUSING LABS 10-25 CLEARED BY PODIATRY AND ID DC TO HOME ON CLINDAMYCIN 300MG PO Q6H FOR 10 DAYS FOLLOW WITH PODIATRY AND WOUND CARE CLINICS 2 DAYS Pt Condition on Discharge: Good Discharge Disposition: Discharge Home Discharge Time: > 30 minutes Discharge Instructions DIET: Follow Instructions for: Heart Healthy Diet, Diabetic Diet Speech Therapy-Diet Recommends: Regular Activities you can perform: Regular-No Restrictions Other Activity Instructions: NO SHOWERING UNTIL CLEARED BY PODIATRY Follow up Referrals: PCP Follow-up - 1 Week Podiatry - 2-3 Days [facility] - [facility] with [facility] New Medications: Clindamycin (Clindamycin) 300 Mg Cap 300 MG PO Q6H for Infection for 10 Days, #40 CAP 0 Refills Lactobacillus Acidophilus (Lactinex) 1 Chew 1 TAB CHEW TID for Nutritional Supplement, #90 TAB 0 Refills Oxycodone-Acetaminophen (Oxycodone-Acetaminophen) 10-325 mg Tab 1 TAB PO Q4H PRN for pain >5, #60 TAB Discontinued Medications: Sulfamethoxazole-Trimethoprim (Bactrim DS) 800-160 Mg Tab 1 TAB PO BID for Infection for 10 Days, #20 TAB 0 Refills Skyler Mayberry DO Jan 16, 2017 12:07
[2017-01-16 13:05] VITALS: BP 143/91; PULSE 64; RESP 18; TEMP 97.2; O2SAT 98
== END 2017-01-16 15:21 | disposition home or self-care (01) | DRG 571 ==
LOC: NEDDLT 01:15 → OBSVTOIN 01:25 → NEPGCP 01:25 → N05A 01-05 10:40
PROVIDERS: ADMIT Hospitalist; ATTEND Hospitalist
PROC: 0JBP0ZZ Excision of Left Lower Leg Subcutaneous Tissue and Fascia, Open Approach (ICD-10-PCS; principal; 2017-01-05 08:02)
PROC: 0JBP0ZZ Excision of Left Lower Leg Subcutaneous Tissue and Fascia, Open Approach (ICD-10-PCS; 2017-01-09)
DX: L03.116 Cellulitis of left lower limb (principal); L97.825 Non-pressure chronic ulcer of other part of left lower leg with muscle involvement without evidence of necrosis; S81.832A Puncture wound without foreign body, left lower leg, initial encounter; B95.62 Methicillin resistant Staphylococcus aureus infection as the cause of diseases classified elsewhere; B42.9 Sporotrichosis, unspecified; L01.00 Impetigo, unspecified; L02.416 Cutaneous abscess of left lower limb; B95.1 Streptococcus, group B, as the cause of diseases classified elsewhere; W45.8XXA Other foreign body or object entering through skin, initial encounter; Z53.29 Procedure and treatment not carried out because of patient's decision for other reasons; Z91.19 Patient's noncompliance with other medical treatment and regimen; Z88.0 Allergy status to penicillin
CPT/HCPCS: 73720; 76937; 80053; 80069; 80202; 82565; 83605; 83735; 85007; 85025; 85027; 85610; 85730; 86403; 87015; 87040; 87070; 87102; 87116; 87147; 87176; 87186; 87205; 87206; 90471; 96372; 99285; A9579; G0008; J0131; J1100; J1170; J1650; J1885; J2175; J2250; J2270; J2370; J2405; J3010; J3370; J7030; J7040; J7050